=== PATIENT | female | born 1945 | race Caucasian/White ===

== ENCOUNTER → 2016-12-14 | Outpatient (CLI) | payer OTHER ==
[2016-12-14 13:27] LABS: BLOOD UREA NITROGEN 17 mg/dl (7-18); BUN/CREATININE RATIO 18.6 (10-20); CALCIUM 9.8 mg/dl (8.5-10.1); CARBON DIOXIDE 29 mmol/L (21-32); CHLORIDE 101 mmol/L (98-107); CREATININE 0.89 mg/dl (0.60-1.20); GLUCOSE 263 mg/dl (70-99); POTASSIUM 4.2 mmol/L (3.5-5.1); SODIUM 138 mmol/L (136-145)
[2016-12-14 13:35] LABS: ESTIMATED AVERAGE GLUCOSE 237 mg/dl; HA1C FLAG Normal (Normal)
[2016-12-14 13:55] LABS: RATIO 17.7 mcg/mg (0-30.0)
== END | disposition home or self-care (01) ==
LOC: C.LABMFLN 13:27
PROVIDERS: ATTEND Family Medicine
DX: E11.8 Type 2 diabetes mellitus with unspecified complications (principal); I10 Essential (primary) hypertension; Z00.00 Encounter for general adult medical examination without abnormal findings

== ENCOUNTER → 2018-07-13 | Outpatient (CLI) | payer OTHER ==
[2018-07-13 12:56] LABS: HEMOGLOBIN A1C 11.7 % (4.5-5.6)
[2018-07-13 13:29] LABS: ALT/SGPT 26 U/L (12-78); BLOOD UREA NITROGEN 15 mg/dl (7-18); CALCIUM 9.4 mg/dl (8.5-10.1); CARBON DIOXIDE 28 mmol/L (21-32); CREATININE 0.98 mg/dl (0.60-1.20); GLUCOSE 306 mg/dl (70-99); LDL CHOLESTEROL (DIRECT) 132 mg/dl; POTASSIUM 4.2 mmol/L (3.5-5.1); SODIUM 136 mmol/L (136-145)
== END | disposition home or self-care (01) ==
LOC: C.LABMFLN 10:22
PROVIDERS: ATTEND Family Medicine
DX: Z00.00 Encounter for general adult medical examination without abnormal findings (principal); E11.8 Type 2 diabetes mellitus with unspecified complications; I10 Essential (primary) hypertension; E78.00 Pure hypercholesterolemia, unspecified

== ENCOUNTER 2025-01-09 16:13 | Inpatient (IN) ==
[2025-01-09 17:04] LABS: Appearance Urine Clear (Clear); Bacteria Urine Automated 4+ (None Seen); Bilirubin Urine Negative (Negative); Blood Urine Negative (Negative); Cast Urine Automated 0-2 /lpf (0-2); Color Urine Yellow; Epithelial Cell Urine Auto 0-2 /hpf (0-2); Glucose Urine UA 3+ (Negative); Ketones Urine 1+ (Negative); Leukocyte Esterase Urine Negative (Negative); Nitrite Urine Positive (Negative); Protein Urine Negative (Negative); RBC Urine Automated 0-2 /hpf (0-2); Specific Gravity Urine 1.036 (1.000-1.030); Urobilinogen Urine Negative (Negative); WBC Urine Automated 0-5 /hpf (0-5); pH Urine 5.5 (4.5-7.5)
[2025-01-09 17:05] LABS: INR 1.3 (0.9-1.1); Partial Thromboplastin Time 27 Seconds (21-31); Prothrombin Time 13.5 Seconds (9.0-12.0)
[2025-01-09 17:06] LABS: Base Excess VBG 0.1 mEq/L; HCO3 VBG 24 mmol/L; Oxygen Saturation VBG 61.4 %; PCO2 VBG 34 mmHg (38-50); PO2 VBG 35 mmHg; pH VBG 7.45 (7.36-7.41)
[2025-01-09] MEDS: ACETAMINOPHEN 1,000 MG/100 ML VIAL IV STA (17:17)
[2025-01-09 17:18] LABS: Basophils # (auto) 0.01 K/uL (0.00-0.20); Basophils % (auto) 0.2 %; Hematocrit (blood only) 40.4 % (37.0-47.0); Hemoglobin 13.7 g/dl (12.0-16.0); Immature Granulocytes # (auto) 0.02 K/uL (0.01-0.20); Immature Granulocytes % (auto) 0.4 %; Lymphocytes # (auto) 0.59 K/uL (1.20-3.40); Lymphocytes % (auto) 12.9 %; Mean Corpuscular Hemoglobin 28.2 pg (25.0-34.0); Mean Corpuscular Hgb Conc 33.9 g/dL (32.0-36.0); Mean Corpuscular Volume 83.1 fL (80.0-100.0); Mean Platelet Volume 11.6 fL (9.4-12.4); Monocytes # (auto) 0.59 K/uL (0.11-0.59); Monocytes % (auto) 12.9 %; Neutrophils # (auto) 3.35 K/uL (1.40-6.50); Neutrophils % (auto) 73.6 %; Platelet Count 109 K/uL (130-400); RDW Coefficient of Variation 13.7 % (11.5-14.5); RDW Standard Deviation 41.5 fL (36.4-46.3); Red Blood Count 4.86 M/uL (4.20-5.40); White Blood Count 4.56 K/ul (4.8-10.8)
--- NOTE | 2025-01-09 17:31 | CT Scan Report ---
INDICATION: Altered mental status. COMPARISON: No relevant priors available TECHNIQUE: Axial CT images of the head were obtained without IV contrast. Coronal and sagittal reformations were reviewed. FINDINGS: Goodwin-white differentiation is relatively preserved. No mass, mass effect or midline shift. Mild chronic ischemic white matter changes. No evidence of acute large territorial infarction or acute intracranial hemorrhage. Ventricles appear normal in size. Basal cisterns are patent. No depressed calvarial fracture. Small amount of fluid in the right maxillary sinus. IMPRESSION: 1. No acute intracranial process. 2. Small amount of fluid in the right maxillary sinus. Correlate for sinusitis. Electronically signed by Saul Martino 01-09-2025 5:31 PM
[2025-01-09] MEDS: cefTRIAXone SODIUM 2,000 MG/50 ML BAG IV STA (17:47)
[2025-01-09] MEDS: SODIUM CHLORIDE 0.9% 1,000 ML IV SCH (17:47)
[2025-01-09 17:51] LABS: Albumin Level 4.3 gm/dl (3.4-5.0); BUN Creatinine Ratio 15.7 (10-20); Bilirubin Direct 0.1 mg/dl (0-0.2); Bilirubin,Total 0.5 mg/dl (0.2-1.0); Calcium 9.7 mg/dl (8.6-10.3); Creatinine Clr Calc Pharmacy 48.9 ml/min; Potassium 4.3 mmol/L (3.5-5.1); Total Protein 7.7 gm/dl (6.0-8.3); Troponin I High Sensitivity 66.9 pg/ml (0-14)
--- NOTE | 2025-01-09 17:51 | History & Physical Report ---
Date of Service January 09, 2025 Assessment & Plan (1) Sepsis: Plan: presented with acute confusion,+UA w/ lactic 3.0 on admission and temp to 38.3C with leukopenia with tachycardia CT head negative for acute CVA. suspect sepsis 2nd to urinary source with increased urination/burning/frequency reported Admit to med w/ telemetry 2L NSS bolus have been ordered and will monitor on repeat. Repeat lactic not ordered, placed order for NOW EKG w/ sinus tachycardia w/ rates 110bpm, possible LAR. Septal infarct noted but no CP. Troponin 66.9, no repeat and ordered x 1 now Ceftriaxone IV continued. F/u urine/blood cx (procal 0.05) Lovenox SQ for DVT proph (2) Metabolic encephalopathy: Plan: suspected 2nd to above. monitor response to tx UTI, f/u urine cx. hold home gabapentin/Requip for now (3) UTI (urinary tract infection): Plan: UA appearing grossly infected. Provided Ceftriaxone IV in ER and will continue on such F/u urine/blood cx and de-escalate as able (4) Diabetes mellitus: Plan: Last A1c 8.6 last march, Prior on Jardiance but stopped 2nd to cost but was improved <10 compared to prior. Currently on glipizide/metformin at baseline Glu back on chemistries and elevated to 400s, 2L IVF as above, possible early HSS? No anion gap noted. BUN/Cr 16/1.02 A1c w/ AM labs, hold home meds BSG AC/HS SSI while inpatient (5) Benign essential hypertension: Plan: On lisinopril-HCTZ 20-12.5mg daily Lisinopril 20mg PO x 1 now for BP 152/89, HCTZ to resume in AM as avoiding for now w/ dehydration (6) HLD (hyperlipidemia): Plan: likely benefit from statin, will add lipids to AM labs Plan DVT proph: Lovenox SQ once daily, monitor platelets Dispo: admit to med/telemetry, IVF for sepsis 2nd to urinary source suspected. monitor repeat lactic/troponin, EKG w/ CP if occurs PT/OT consults to be placed (lives w/ son) History of Present Illness Chief Complaint: AMS Primary Care Provider: NO PCP 79yo female with PMHx significant for DM/HTN presented with acute mental status change/confusion. CT head negative for acute CVA. UA appears grossly infected, likely source Patient evaluated in C9, no family in room. Alert to person, believes in [facility], year 1943 and month November but is pleasant/cooperative. Patient does endorse having burning/increased urinary frequency however. No overt abdominal pain, nausea/vomiting, no CP/SOB reported. EKG noting sinus tachycardia but rates stable 90-100s at present. Reports lives with her son, who apparently was with her earlier. A friend took to eye exam, notable right eye is DILATED from that appointment. Discussed admission for tx UTI/further evaluation, check A1c in AM. On lisinopril/HCTZ but notes doesn't regularly check her BP at home. Therapy evals to be undertaken. FULL CODE. Allergies Allergy/AdvReac Type Severity Reaction Status Date / Time No Known Drug Allergies Allergy Verified 04/07/23 09:16 Home Medications Medication Instructions Recorded Confirmed Type blood-glucose meter (OneTouch #1 ea 01/28/22 04/07/23 Rx Ultra2 Meter) lancets 33 gauge (OneTouch Delica #100 ea 01/28/22 04/07/23 Rx Plus Lancet) blood sugar diagnostic (OneTouch #100 ea 07/19/23 Rx Ultra Test strips) glipizide 10 mg tablet, extended 10 mg PO BID #60 tabs 07/26/24 01/09/25 Rx release 24 hr metformin 1,000 mg tablet 1,000 mg PO BID #180 tabs 07/27/24 01/09/25 Rx gabapentin 300 mg capsule 300 mg PO UD 01/09/25 01/09/25 History lisinopril 20 1 tab PO UD 01/09/25 01/09/25 History mg-hydrochlorothiazide 12.5 mg tablet ropinirole 0.25 mg tablet 0.5 mg PO HS 01/09/25 01/09/25 History Past Med/Surg History Problem List (Updated 01/09/25 @ 20:04 by Toño Zee MD) Sepsis (Acute) Metabolic encephalopathy (Acute) UTI (urinary tract infection) (Acute) Positive colorectal cancer screening using Cologuard test Screening for colon cancer Diabetic retinopathy, nonproliferative (Acute) Benign essential hypertension Medical History Screening for thyroid disorder Cholelithiases Elevated LDL cholesterol level Polyp of colon Restless legs syndrome (RLS) Surgical History History of tonsillectomy and adenoidectomy [place] teeth extracted H/O tubal ligation Family History Mother Diabetes Father Myocardial infarction, Onset Age: 80 Sister Diabetes Depression Brother Diabetes, Onset Age: 43 65 Grandfather (Maternal) Diabetes Grandmother (Maternal) Diabetes Social History Smoking Status: Former smoker Hx Alcohol Use: No Hx Substance Use: No Preferred Language: Mongolian Communication Ability: Effective Hearing Ability: Normal Beliefs That Will Affect Care: Muslim and Spiritual marital status: Current Living Situation: Spouse current occupational status: employed current occupation: realeastate agent Feels Safe at Home: Yes caffeine: No during the past year weight has: remained stable Physical Activity Frequency: Does not Exercise Seatbelt Use: sometimes Sunscreen Use: No Review of Systems 2 Review of Systems: All systems reviewed & are unremarkable except as noted in HPI & below Physical Exam 2 Physical Exam: General: 79yo female sitting up in bed, getting XRAY, NAD HEENT: head atraumatic, normocephalic, mm slightly dry, trachea midline Resp: even/unlabored, slightly diminished in the bases but no wheezing/rales, on ROOM AIR CV: RRR, slightly tachy (improving since IVF), no significant m/r/g, no pitting edema GI: +BS, soft/slight distension, nontender no winkler MSK/Neuro: moves all extremities, no slurred speech/facial droop, able to follow commands as asked but mentation not at baseline Notable RIGHT EYE DILATED (recent eye visit, was dilated at that exam) Psych: alert to person, not year/time/month, cooperative with exam Results & Data Results & Data Vital Signs (Past 12 Hours) Vital Signs Temp Pulse Pulse Resp BP BP Pulse Ox 01/09/25 17:32 36.6 C 80 18 121/69 97 01/09/25 16:52 112 H 22 167/94 H 01/09/25 16:50 112 H 25 H 167/94 H 01/09/25 16:50 112 H 23 01/09/25 16:36 108 H 01/09/25 16:27 38.3 C H 110 H 18 167/94 H 93 O2 Del Method 01/09/25 17:32 Room Air 01/09/25 16:52 Room Air 01/09/25 16:50 Room Air 01/09/25 16:50 01/09/25 16:36 01/09/25 16:27 Room Air Laboratory Results 01/09/25 16:32 01/09/25 16:32 VBG pH 7.45, pCO2 34 Lactic 3.0 Ammonia 15 Troponin 66.9 Procal 0.05 Diagnostic Findings Chest X-Ray 01/09/25 16:41 INDICATION: Chest pain. TECHNIQUE: Frontal radiograph of the chest. COMPARISON: None. FINDINGS: Elevation of the right hemidiaphragm. Cardiomegaly. Mild pulmonary vascular congestion. No infiltrate, pleural effusion or pneumothorax. No acute osseous abnormality evident. IMPRESSION: Mild pulmonary vascular congestion. Electronically signed by Saul Martino 01-09-2025 6:[address] 01/09/25 16:42 INDICATION: Altered mental status. COMPARISON: No relevant priors available TECHNIQUE: Axial CT images of the head were obtained without IV contrast. Coronal and sagittal reformations were reviewed. FINDINGS: Goodwin-white differentiation is relatively preserved. No mass, mass effect or midline shift. Mild chronic ischemic white matter changes. No evidence of acute large territorial infarction or acute intracranial hemorrhage. Ventricles appear normal in size. Basal cisterns are patent. No depressed calvarial fracture. Small amount of fluid in the right maxillary sinus. IMPRESSION: 1. No acute intracranial process. 2. Small amount of fluid in the right maxillary sinus. Correlate for sinusitis. Electronically signed by Saul Martino 01-09-2025 5:31 PM Supervising Physician Co-Signing Physician Notes Patient seen and examined, chart reviewed, case discussed with Aminata Hamilton PA-C and I agree with the assessment and plan as above except as otherwise noted Labs and images reviewed Presented with acute confusion, elevated lactate, fever, leukopenia, tachycardia. Infected appearing UA. Suspect urosepsis. Rocephin given in the ER. Fluids given in the ER. Repeat lactic acid is pending. Agree with above. On bedside assessment patient is nondistressed and comfortable. No questions. No distress. PG Care Time/CCT Total # of Minutes Spent Total Time Spent with Patient: Total time spent is greater than 50% in coordination of care (as documented) at patient's floor/unit and/or counseling patient: Coding Level of Care Code 77943 INT INP/OBS CARE 3/75MIN Diagnoses Sepsis A41.9 Metabolic encephalopathy G93.41 UTI (urinary tract infection) N39.0 Diabetes mellitus E11.9 Benign essential hypertension I10 HLD (hyperlipidemia) E78.5
[2025-01-09 17:57] LABS: Adenovirus PCR Not Detected (NotDetected); Bordetella parapertussis PCR Not Detected (NotDetected); Bordetella pertussis PCR Not Detected (NotDetected); Chlamydia pneumoniae PCR Not Detected (NotDetected); Coronavirus 229E PCR Not Detected (NotDetected); Coronavirus CoV-2 (COVID19)PCR Not Detected (NotDetected); Coronavirus HKU1 PCR Not Detected (NotDetected); Coronavirus NL63 PCR Not Detected (NotDetected); Coronavirus OC43PCR Not Detected (NotDetected); Human Metapneumovirus PCR Not Detected (NotDetected); Influenza A PCR Not Detected (NotDetected); Influenza B PCR Not Detected (NotDetected); Mycoplasma pneumoniae PCR Not Detected (NotDetected); Parainfluenza Virus 1 PCR Not Detected (NotDetected); Parainfluenza Virus 2 PCR Not Detected (NotDetected); Parainfluenza Virus 3 PCR Not Detected (NotDetected); Parainfluenza Virus 4 PCR Not Detected (NotDetected); Respiratory Syncytial VirusPCR Not Detected (NotDetected); Rhinovirus/Enterovirus PCR Not Detected (NotDetected)
--- NOTE | 2025-01-09 18:18 | XRay Report ---
INDICATION: Chest pain. TECHNIQUE: Frontal radiograph of the chest. COMPARISON: None. FINDINGS: Elevation of the right hemidiaphragm. Cardiomegaly. Mild pulmonary vascular congestion. No infiltrate, pleural effusion or pneumothorax. No acute osseous abnormality evident. IMPRESSION: Mild pulmonary vascular congestion. Electronically signed by Saul Martino 01-09-2025 6:16 PM
[2025-01-09 18:59] LABS: Troponin I High Sensitivity 59.2 pg/ml (0-14)
[2025-01-09 19:05] LABS: Thyroid Stimulating Hormone 1.471 uIu/ml (0.300-4.500)
--- NOTE | 2025-01-09 20:04 | Emergency Department Note ---
History of Present Illness General Chief complaint: Confusion Time Seen by Provider: 01/09/25 16:41 Limitations: altered mental status History of Present Illness Provider complaint: Altered mental status Onset (ago): day(s) 1 79-year-old female presents emergency department for altered mental status. Reportedly the patient was acting very confused today at her appointments. No reported falls or traumas. No fevers. Home Medications Medication Instructions Recorded Confirmed Type blood-glucose meter (OneTouch #1 ea 01/28/22 04/07/23 Rx Ultra2 Meter) lancets 33 gauge (OneTouch Delica #100 ea 01/28/22 04/07/23 Rx Plus Lancet) blood sugar diagnostic (OneTouch #100 ea 07/19/23 Rx Ultra Test strips) glipizide 10 mg tablet, extended 10 mg PO BID #60 tabs 07/26/24 01/09/25 Rx release 24 hr metformin 1,000 mg tablet 1,000 mg PO BID #180 tabs 07/27/24 01/09/25 Rx gabapentin 300 mg capsule 300 mg PO UD 01/09/25 01/09/25 History lisinopril 20 1 tab PO UD 01/09/25 01/09/25 History mg-hydrochlorothiazide 12.5 mg tablet ropinirole 0.25 mg tablet 0.5 mg PO HS 01/09/25 01/09/25 History Allergies Allergy/AdvReac Type Severity Reaction Status Date / Time No Known Drug Allergies Allergy Verified 04/07/23 09:16 Past Med/Surg History Problem List (Updated 01/09/25 @ 20:04 by Toño Zee MD) Sepsis (Acute) Metabolic encephalopathy (Acute) UTI (urinary tract infection) (Acute) Positive colorectal cancer screening using Cologuard test Screening for colon cancer Diabetic retinopathy, nonproliferative (Acute) Benign essential hypertension Medical History (Updated 01/09/25 @ 20:04 by Toño Zee MD) HLD (hyperlipidemia) Diabetes mellitus Screening for thyroid disorder Cholelithiases Elevated LDL cholesterol level Polyp of colon Restless legs syndrome (RLS) Surgical History History of tonsillectomy and adenoidectomy [facility] teeth extracted H/O tubal ligation Family History Mother Diabetes Father Myocardial infarction, Onset Age: 80 Sister Diabetes Depression Brother Diabetes, Onset Age: 43 65 Grandfather (Maternal) Diabetes Grandmother (Maternal) Diabetes Social History Smoking Status: Former smoker Hx Alcohol Use: No Hx Substance Use: No Preferred Language: Chilean Communication Ability: Effective Hearing Ability: Normal Beliefs That Will Affect Care: Latter Day and Spiritual marital status: Current Living Situation: Spouse current occupational status: employed current occupation: realeastate agent Feels Safe at Home: Yes caffeine: No during the past year weight has: remained stable Physical Activity Frequency: Does not Exercise Seatbelt Use: sometimes Sunscreen Use: No Physical Exam Vital Signs Vital Signs - 24 hr 01/09/25 16:27 01/09/25 16:36 01/09/25 16:50 Temperature 38.3 C H Temperature Source Oral Pulse Rate 110 H 108 H 112 H Pulse Rate [Right Finger] Pulse Rhythm Regular Pulse Rhythm [Right Finger] Pulse Strength [Right Finger] Respiratory Rate 18 23 Respiratory Effort / Characteristics Respiratory Depth Respiratory Pattern Blood Pressure 167/94 H Blood Pressure [Right Arm] Blood Pressure Mean 118 Blood Pressure Mean [Right Arm] Blood Pressure Position [Right Arm] Pulse Oximetry 93 Oxygen Delivery Method Room Air Sepsis Recent Fever Within 48 Hours Yes Sepsis New/Unexplained Change in Mental Status Yes Sepsis Action Taken by Nursing No Action Required 01/09/25 16:50 01/09/25 16:52 01/09/25 17:32 Temperature 36.6 C Temperature Source Oral Pulse Rate 80 Pulse Rate [Right Finger] 112 H 112 H Pulse Rhythm Pulse Rhythm [Right Finger] Regular Regular Pulse Strength [Right Finger] Normal Normal Respiratory Rate 25 H 22 18 Respiratory Effort / Characteristics Non-Labored Non-Labored Respiratory Depth Normal Normal Respiratory Pattern Regular Regular Blood Pressure 121/69 Blood Pressure [Right Arm] 167/94 H 167/94 H Blood Pressure Mean Blood Pressure Mean [Right Arm] 118 118 Blood Pressure Position [Right Arm] Lying Lying Pulse Oximetry 97 Oxygen Delivery Method Room Air Room Air Room Air Sepsis Recent Fever Within 48 Hours Sepsis New/Unexplained Change in Mental Status Sepsis Action Taken by Nursing 01/09/25 18:09 Temperature Temperature Source Pulse Rate Pulse Rate [Right Finger] 99 H Pulse Rhythm Pulse Rhythm [Right Finger] Regular Pulse Strength [Right Finger] Normal Respiratory Rate Respiratory Effort / Characteristics Respiratory Depth Respiratory Pattern Blood Pressure Blood Pressure [Right Arm] 152/89 H Blood Pressure Mean Blood Pressure Mean [Right Arm] 110 Blood Pressure Position [Right Arm] Lying Pulse Oximetry 95 Oxygen Delivery Method Room Air Sepsis Recent Fever Within 48 Hours Sepsis New/Unexplained Change in Mental Status Sepsis Action Taken by Nursing Physical Exam HENT: Exam performed. - Head: Normocephalic and atraumatic. EYES: Conjunctivae and EOM are normal. Right eye exhibits no discharge. Left eye exhibits no discharge. No scleral icterus. NECK: Normal range of motion. Neck supple. No JVD present. CV: Tachycardic rate, regular rhythm, normal heart sounds and intact distal pulses. There is no peripheral edema. Palpable radial pulses bue. PULM/CHEST: Effort normal and breath sounds normal. No respiratory distress. No stridor. no wheezes. no rales. ABD: The abdomen is soft. There is no tenderness. NEURO: Motor and sensation grossly intact. Patient is alert but not oriented to time. Oriented to person and place. SKIN: Skin is warm and dry. He is not diaphoretic. Course Course 1641: The patient was evaluated in room C9. A complete history and physical exam was performed Cardiac monitoring: An order was placed for continuous cardiac monitoring. The monitor shows a rate of 110 with sinus tachycardia rhythm interpreted by ut Sepsis protocols initiated. 1800: Vital signs stable. Labs show white blood cell count of 4.56 lactic acid of 3 CT of the head is unremarkable. Urinalysis seems to be the source of the patient's infection. IV fluid 2 L normal saline ordered for the patient which would meet the 30 cc/kg normal saline fluid resuscitation. Rocephin 2 g ordered for the patient [facility]. Administered Medications Discontinued Medications Acetaminophen (Ofirmev) 1,000 mg in 100 mls @ 400 mls/hr IV NOW STA Stop: 01/09/25 16:55 Last Infusion: 01/09/25 17:48 Dose: Infused Documented By: Admin: 01/09/25 17:17 Dose: 400 mls/hr Documented By: BAYRON Ceftriaxone Sodium (Rocephin) 2,000 mg in 50 mls @ 100 mls/hr IV NOW STA Stop: 01/09/25 17:57 Last Infusion: 02/18/25 18:50 Dose: Infused Documented By: Admin: 01/09/25 17:47 Dose: 100 mls/hr Documented By: BAYRON Sodium Chloride (Nss) 1,000 mls @ 999 mls/hr IV .Q1H1M [facility] Stop: 01/09/25 19:45 Last Admin: 01/09/25 18:31 Dose: 999 mls/hr Documented By: Infusion: 01/09/25 18:31 Dose: Infused Documented By: Admin: 01/09/25 17:47 Dose: 999 mls/hr Documented By: BAYRON Critical Care Time Critical Care Time: Yes Total Critical Care Time: 47 I have personally spent greater than 47 minutes of critical care time in the direct management of this patient. This includes bedside care, interpretation of diagnostic studies, and testing, discussion with consultants, patient, and family members, and other required patient management activities. This 47 minutes is in excess of all separately billable procedures. Medical Decision Making Laboratory Data Attestation: I reviewed the patient's lab results. 01/09/25 16:32 01/09/25 16:32 Lab Results 01/09/25 01/09/25 01/09/25 Range/Units 16:32 16:49 16:53 WBC 4.56 L (4.8-10.8) K/ul RBC 4.86 (4.20-5.40) M/uL Hgb 13.7 (12.0-16.0) g/dl Hct 40.4 (37.0-47.0) % MCV 83.1 (80.0-100.0) fL MCH 28.2 (25.0-34.0) pg MCHC 33.9 (32.0-36.0) g/dL RDW Std Deviation 41.5 (36.4-46.3) fL RDW Coeff of Angelica 13.7 (11.5-14.5) % Plt Count 109 L (130-400) K/uL MPV 11.6 (9.4-12.4) fL Immature Gran % (Auto) 0.4 % Neut % (Auto) 73.6 % Lymph % (Auto) 12.9 % [place] % (Auto) 12.9 % Eos % (Auto) 0.0 % Baso % (Auto) 0.2 % Neut # (Auto) 3.35 (1.40-6.50) K/uL Lymph # (Auto) 0.59 L (1.20-3.40) K/uL [place] # (Auto) 0.59 (0.11-0.59) K/uL Eos # (Auto) 0.00 (0.00-0.50) K/uL Baso # (Auto) 0.01 (0.00-0.20) K/uL Immature Gran # (Auto) 0.02 (0.01-0.20) K/uL PT 13.5 H (9.0-12.0) Seconds INR 1.3 H (0.9-1.1) APTT 27 (21-31) Seconds PTT Ratio 1.0 VBG pH 7.45 H (7.36-7.41) VBG pCO2 34 L (38-50) mmHg VBG pO2 35 mmHg VBG HCO3 24 mmol/L VBG O2 Saturation 61.4 % VBG Base Excess 0.1 mEq/L Sodium 131 L (136-145) mmol/L Potassium 4.3 (3.5-5.1) mmol/L Chloride 97 L (98-107) mmol/L Carbon Dioxide 24 (21-32) mmol/L Anion Gap 10 (3-11) BUN 16 (6-23) mg/dl Creatinine 1.02 (0.6-1.2) mg/dl Est Cr Clr Drug Dosing 48.9 ml/min eGFR 56.31 BUN/Creatinine Ratio 15.7 (10-20) Glucose 421 H* (70-99(Fasting)) mg/dl Lactate 3.0 H* (0.4-2.0) mmol/L Calcium 9.7 (8.6-10.3) mg/dl Magnesium 2.0 (1.7-2.4) mg/dl Total Bilirubin 0.5 (0.2-1.0) mg/dl Direct Bilirubin 0.1 (0-0.2) mg/dl AST 35 (13-39) U/L ALT 13 (7-52) U/L Alkaline Phosphatase 101 (34-104) U/L Ammonia (18-72) umol/L Troponin I High Sens 66.9 H* (0-14) pg/ml Total Protein 7.7 (6.0-8.3) gm/dl Albumin 4.3 (3.4-5.0) gm/dl Vitamin B12 (180-914) pg/ml Procalcitonin 0.05 (0-0.5) ng/ml TSH (0.300-4.500) uIu/ml Urine Color Yellow Urine Appearance Clear (Clear) Urine pH 5.5 (4.5-7.5) Ur Specific [place] 1.036 H (1.000-1.030) Urine Protein Negative (Negative) Urine Glucose (UA) 3+ H (Negative) Urine Ketones 1+ H (Negative) Urine Blood Negative (Negative) Urine Nitrite Positive A (Negative) Urine Bilirubin Negative (Negative) Urine Urobilinogen Negative (Negative) Ur Leukocyte Esterase Negative (Negative) Urine WBC (Auto) 0-5 (0-5) /hpf Urine RBC (Auto) 0-2 (0-2) /hpf U Hyaline Cast (Auto) 0-2 (0-2) /lpf U Epithel Cells (Auto) 0-2 (0-2) /hpf Urine Bacteria (Auto) 4+ H (None Seen) Adenovirus (PCR) (NotDetected) B. pertussis DNA (PCR) (NotDetected) B.parapertussis DNA PCR (NotDetected) C. pneumoniae DNA (PCR) (NotDetected) Coronavirus OC43 (PCR) (NotDetected) Coronavirus HKU1 (PCR) (NotDetected) Coronavirus 229E (PCR) (NotDetected) SARS-CoV-2 (PCR) (NotDetected) Coronavirus NL63 (PCR) (NotDetected) Human Metapneumovir PCR (NotDetected) Influenza Type A (PCR) (NotDetected) Influenza Type B (PCR) (NotDetected) M. pneumoniae (PCR) (NotDetected) Parainfluenza 1 (PCR) (NotDetected) Parainfluenza 2 (PCR) (NotDetected) Parainfluenza 3 (PCR) (NotDetected) Parainfluenza 4 (PCR) (NotDetected) RSV (PCR) (NotDetected) Entero/Rhino (PCR) (NotDetected) 0201/09/25 01/09/25 Range/Units 16:54 17:24 18:28 WBC (4.8-10.8) K/ul RBC (4.20-5.40) M/uL Hgb (12.0-16.0) g/dl Hct (37.0-47.0) % MCV (80.0-100.0) fL MCH (25.0-34.0) pg MCHC (32.0-36.0) g/dL RDW Std Deviation (36.4-46.3) fL RDW Coeff of Angelica (11.5-14.5) % Plt Count (130-400) K/uL MPV (9.4-12.4) fL Immature Gran % (Auto) % Neut % (Auto) % Lymph % (Auto) % [place] % (Auto) % Eos % (Auto) % Baso % (Auto) % Neut # (Auto) (1.40-6.50) K/uL Lymph # (Auto) (1.20-3.40) K/uL [place] # (Auto) (0.11-0.59) K/uL Eos # (Auto) (0.00-0.50) K/uL Baso # (Auto) (0.00-0.20) K/uL Immature Gran # (Auto) (0.01-0.20) K/uL PT (9.0-12.0) Seconds INR (0.9-1.1) APTT (21-31) Seconds PTT Ratio VBG pH (7.36-7.41) VBG pCO2 (38-50) mmHg VBG pO2 mmHg VBG HCO3 mmol/L VBG O2 Saturation % VBG Base Excess mEq/L Sodium (136-145) mmol/L Potassium (3.5-5.1) mmol/L Chloride (98-107) mmol/L Carbon Dioxide (21-32) mmol/L Anion Gap (3-11) BUN (6-23) mg/dl Creatinine (0.6-1.2) mg/dl Est Cr Clr Drug Dosing ml/min eGFR BUN/Creatinine Ratio (10-20) Glucose (70-99(Fasting)) mg/dl Lactate 2.1 H* (0.4-2.0) mmol/L Calcium (8.6-10.3) mg/dl Magnesium (1.7-2.4) mg/dl Total Bilirubin (0.2-1.0) mg/dl Direct Bilirubin (0-0.2) mg/dl AST (13-39) U/L ALT (7-52) U/L Alkaline Phosphatase (34-104) U/L Ammonia 15.0 L (18-72) umol/L Troponin I High Sens 59.2 H* (0-14) pg/ml Total Protein (6.0-8.3) gm/dl Albumin (3.4-5.0) gm/dl Vitamin B12 > 1500 H (180-914) pg/ml Procalcitonin (0-0.5) ng/ml TSH 1.471 (0.300-4.500) uIu/ml Urine Color Urine Appearance (Clear) Urine pH (4.5-7.5) Ur Specific [place] (1.000-1.030) Urine Protein (Negative) Urine Glucose (UA) (Negative) Urine Ketones (Negative) Urine Blood (Negative) Urine Nitrite (Negative) Urine Bilirubin (Negative) Urine Urobilinogen (Negative) Ur Leukocyte Esterase (Negative) Urine WBC (Auto) (0-5) /hpf Urine RBC (Auto) (0-2) /hpf U Hyaline Cast (Auto) (0-2) /lpf U Epithel Cells (Auto) (0-2) /hpf Urine Bacteria (Auto) (None Seen) Adenovirus (PCR) Not Detected (NotDetected) B. pertussis DNA (PCR) Not Detected (NotDetected) B.parapertussis DNA PCR Not Detected (NotDetected) C. pneumoniae DNA (PCR) Not Detected (NotDetected) Coronavirus OC43 (PCR) Not Detected (NotDetected) Coronavirus HKU1 (PCR) Not Detected (NotDetected) Coronavirus 229E (PCR) Not Detected (NotDetected) SARS-CoV-2 (PCR) Not Detected (NotDetected) Coronavirus NL63 (PCR) Not Detected (NotDetected) Human Metapneumovir PCR Not Detected (NotDetected) Influenza Type A (PCR) Not Detected (NotDetected) Influenza Type B (PCR) Not Detected (NotDetected) M. pneumoniae (PCR) Not Detected (NotDetected) Parainfluenza 1 (PCR) Not Detected (NotDetected) Parainfluenza 2 (PCR) Not Detected (NotDetected) Parainfluenza 3 (PCR) Not Detected (NotDetected) Parainfluenza 4 (PCR) Not Detected (NotDetected) RSV (PCR) Not Detected (NotDetected) Entero/Rhino (PCR) Not Detected (NotDetected) Imaging Data Attestation: I personally reviewed and interpreted this imaging study as follows: My Impression: Chest x-ray negative. Airway clear. No pneumothorax. No consolidation. No cardiomegaly or cephalization.. No free air under the diaphragm. No fractures of the skeletal structures. Radiologist's Impression: Chest X-Ray 01/09/25 16:41 INDICATION: Chest pain. TECHNIQUE: Frontal radiograph of the chest. COMPARISON: None. FINDINGS: Elevation of the right hemidiaphragm. Cardiomegaly. Mild pulmonary vascular congestion. No infiltrate, pleural effusion or pneumothorax. No acute osseous abnormality evident. IMPRESSION: Mild pulmonary vascular congestion. Electronically signed by Saul Martino 01-09-2025 6:[address] 01/09/25 16:42 INDICATION: Altered mental status. COMPARISON: No relevant priors available TECHNIQUE: Axial CT images of the head were obtained without IV contrast. Coronal and sagittal reformations were reviewed. FINDINGS: Goodwin-white differentiation is relatively preserved. No mass, mass effect or midline shift. Mild chronic ischemic white matter changes. No evidence of acute large territorial infarction or acute intracranial hemorrhage. Ventricles appear normal in size. Basal cisterns are patent. No depressed calvarial fracture. Small amount of fluid in the right maxillary sinus. IMPRESSION: 1. No acute intracranial process. 2. Small amount of fluid in the right maxillary sinus. Correlate for sinusitis. Electronically signed by Saul Martino 01-09-2025 5:31 PM ECG Data Attestation: I personally reviewed and interpreted this ECG as follows: Rate (beats per minute): 110 Rhythm: + sinus tachycardia ECG Intervals/blocks: + Normal NE and + Normal QT-c ECG ST segments: + Normal ST segments Additional Comments: QRS 68 MDM Narrative 1641: The patient was evaluated in room C9. A complete history and physical exam was performed Cardiac monitoring: An order was placed for continuous cardiac monitoring. The monitor shows a rate of 110 with sinus tachycardia rhythm interpreted by ut Sepsis protocols initiated. 1800: Vital signs stable. Labs show white blood cell count of 4.56 lactic acid of 3 CT of the head is unremarkable. Urinalysis seems to be the source of the patient's infection. IV fluid 2 L normal saline ordered for the patient which would meet the 30 cc/kg normal saline fluid resuscitation. Rocephin 2 g ordered for the patient patient will be admitted to the [facility] hospitalist team. Impression & Plan UTI (urinary tract infection), Sepsis, Metabolic encephalopathy Discharge Plan Visit Data Chief Complaint: Confusion ED Provider: Toño Zee Discharge Problem: UTI (urinary tract infection), Sepsis, Metabolic encephalopathy Patient Disposition: Admitted As Inpatient Discharge Instructions Interventions: ED Discharge Assessment Last Done: 01/09/25 17:32 Forms Stand Alone Forms: [facility] Prescriptions Prescriptions: No Action (DME) OneTouch Ultra Test Strip See Rx Instructions .ROUTE .MEDSUPPLY Qty: 100 5RF Rx Instructions: As directed Dx E11.9 Test BID glipizide 10 mg tablet extended release 24hr 10 mg PO BID Qty: 60 0RF Rx Instructions: with meals metformin 1,000 mg tablet 1,000 mg PO BID Qty: 180 1RF (DME) blood-glucose meter [OneTouch Ultra2 Meter] Misc See Rx Instructions .Route Qty: 1 0RF Rx Instructions: As directed Dx E11.9 Check FSBS BID (DME) lancets [OneTouch Delica Plus Lancet] 33 gauge misc See Rx Instructions .Route Qty: 100 5RF Rx Instructions: As directed Dx E11.9 Test BID lisinopril-hydrochlorothiazide 20-12.5 mg tablet 1 tab PO UD Rx Instructions: 12.5 mg po daily. no fill history available ropinirole 0.25 mg tablet 0.5 mg PO HS Rx Instructions: 2 po at hs for restless legs; gabapentin 300 mg capsule 300 mg PO UD Rx Instructions: 300 mg po bid. filled 12/04 90 day supply #270 Referrals Referrals: PCP,NO [Primary Care Provider] -
[2025-01-09] MEDS ORDERED: ONDANSETRON INJ 2 MG/ML 2 ML VIAL IV PRN (21:07)
[2025-01-09] MEDS ORDERED: CARBOHYDRATES FOR HYPOGLYCEMIA PO PRN (21:07)
[2025-01-09] MEDS ORDERED: GLUCOSE 40% GEL 15 GM TUBE PO PRN (21:07)
[2025-01-09] MEDS ORDERED: GLUCOSE 10 TAB/TUBE PO PRN (21:07)
[2025-01-09] MEDS ORDERED: GLUCAGON FOR INJ 1 MG VIAL SQ PRN (21:07)
[2025-01-09] MEDS ORDERED: DEXTROSE 50% 50 ML SYRINGE IV PRN (21:07)
[2025-01-09] MEDS: ENOXAPARIN INJ 40 MG/0.4 ML SYR SQ SCH (21:54)
[2025-01-09] MEDS: INSULIN ASPART PER UNIT CHARGE SC SCH (21:54)
[2025-01-09] MEDS: lisinopril 20 MG TAB PO STA (21:54)
--- OUTSIDE RECORDS SUMMARY | 2025-01-10 02:15 | External Medical Summary ---
Author Name Unknown Address Unknown Organization [id number] [address] [place] [id number] Laboratory Report Ordering Provider Test Date Status SHAGGY MCGUIRE 01/09/2025 15:17:20 Final Observation Date Value Abnormality Reference (Units ) Status Glucose Point of Care 01/09/2025 15:17:20 452 Above high normal 70-120 (mg/dL) Final Performing Location [facility] [address] [place] [id number]
--- OUTSIDE RECORDS SUMMARY | 2025-01-10 02:15 | External Medical Summary | Summary of Care ---
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 Active Lisinopril-hydroC HLOROthiazide 20-25 MG Oral Tablet Take 1 Tablet by mouth in the morning. 2 Active NATURAL SUPPLEMENT Take 6 Tablets by mouth in the morning. "Three"-takes 6 pills throughout the day with natural vitamins-B12, D, and other vitamins.. Active glipiZIDE ER 10 MG Oral Tablet Extended Release 24 Hour (Glucotrol XL) take one tablet by mouth twice a day with meals 180 Tablet 3 11/23/2024 5:05 PM EST 4 Active metFORMIN HCl 1000 MG Oral Tablet (Glucophage) take one tablet by mouth twice a day 180 Tablet 3 11/23/2024 5:05 PM EST 4 Active rOPINIRole HCl 0.25 MG Oral Tablet (Requip) Take 2 tablets by mouth at bedtime for restless legs 200 Tablet 3 09/11/2024 10:04 AM EDT 4 Active Gabapentin 300 MG Oral Capsule (Neurontin)Indica tions:Type 2 diabetes mellitus with diabetic polyneuropathy, without long-term current use of insulin ([facility]),Lumbar degenerative disc disease,Spinal stenosis of lumbar region with neurogenic claudication Take 1 Capsule by mouth in the morning and 1 Capsule at noon and 1 Capsule before bedtime. 280 Capsule 3 09/11/2024 3:30 PM EDT 4 Active Empagliflozin 25 MG Oral Tablet (Jardiance)Indica tions:Type 2 diabetes mellitus with diabetic peripheral angiopathy without gangrene, without long-term current use of insulin ([facility]) Take 1 Tablet by mouth in the morning. 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 with type 2 diabetes mellitus (HCC) 1.25 mg IZ PRN 02/29/2024 02/28/2025 A ctive ROPivacaine (Naropin) inj 1.5 mgIndications: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 eye with active choroidal neovascularization (HCC),Intermediate stage nonexudative age-related macular degeneration of right eye,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 associated with type 2 diabetes mellitus (HCC) 1.5 mg IJ PRN 02/29/2024 02/28/2025 A ctive documented as of this encounter (statuses as of 2024) Active Problems Problem Noted Date Diagnosed Date Macular degeneration of both eyes 10/09/2024 Type 2 diabetes mellitus wit h moderate nonproliferative retinopathy of both eyes, without long-term current use of insulin 10/09/2024 Lumbar degenerative disc disease 07/11/2024 Spinal stenosis of lumbar re gion with neurogenic claudication 07/11/2024 Gait disturbance 04/10/2024 Moderate nonproliferative di abetic retinopathy of left eye with macular edema associated with type 2 diabetes mellitus 02/28/2024 Intermediate stage nonexudat david age-related macular degeneration of both eyes 02/28/2024 Class 1 obesity due to exces s calories with serious comorbidity and body mass index (BMI) of 31.0 to 31.9 in adult 02/11/2024 Type 2 diabetes mellitus wit h diabetic peripheral angiopathy without gangrene 01/06/2024 Hypertension goal BP (blood pressure) < 140/90 0 01/06/2024 Dyslipidemia, goal LDL below 70 10/01/2023 Type 2 diabetes mellitus wit h hyperglycemia, without long-term current use of insulin 10/01/2023 Type 2 diabetes mellitus wit h diabetic polyneuropathy, without long-term current use of insulin 10/01/2023 Type 2 diabetes mellitus wit h hemoglobin A1c goal of less than 7.0% 10/01/2023 Onychomycosis 10/01/2023 Postmenopausal status, age-related 10/01/2023 documented as of this encounter (statuses as of 2024) Social History Tobacco Use Types Packs/Day Years Used Date Smoking Tobacco: Former Cigarettes 1 17 1 12/21/1975 - 10/21/1993 Passive Smoke Exposure: Current Smokeless Tobacco: Never Alcohol Use Standard Drinks/Week Comments Yes 0 (1 standard drink = 0.6 oz pure alcohol) rare - glass of wine once or twice a month PHQ-2 Answer Date Recorded PHQ Adult Total Score 0 06/29/2024 Hunger Vital Sign Answer Date Recorded Within the past 12 months, y ou worried that your food would run out before you got the money to buy more. Never true 07/11/20 24 Within the past 12 months, t he food you bought just didn't last and you didn't have money to get more. Never true 07/11/2024 Childcare Answer Date Recorded Do you feel overwhelmed with taking care of a child, family member or friend? No 07/11/2024 Does your family need help f inding childcare? (Household - for ages 0-17 years) Not on file 07/11/2024 Clothing Answer Date Recorded Have you been unable to get clothing when it was really needed? No 07/11/2024 Is your family able to get c lothes or diapers when needed? (Household - for ages 0-17 years) Not on file 07/11/2024 Personal Safety Answer Date Recorded Do you feel unsafe or have concerns for your saf ety? No 07/11/2024 Do you have concerns for you r family's safety? (Household - for ages 0-17 years) Not on file 07/11/2024 Utilities Answer Date Recorded Do you have trouble paying y our heating, water, or electric bill? No 07/11/2024 Is your family able to pay t he heat, water, or electric bill? (Household - for ages 0-17 years) Not on file 07/11/2024 Does your family have access to good internet? (Household - for ages 0-17 years) Not on file 07/11/2024 Employment Status Answer Date Recorded Are you unemployed or without regular income? No 07/11/2024 Does the household have a re gular source of income? (Household - for ages 0-17 years) Not on file 07/11/2024 Social Connections Answer Date Recorded How often do you feel lonely or isolated from th ose around you? Never 07/11/2024 Financial Resource Strain Answer Date R ecorded Do you have any trouble payi ng for your medications, or do you think you might in the future? No 07/11/2024 Does your family have troubl e paying for medicine? (Household - for ages 0-17 years) Not on file 07/11/2024 Transportation Needs Answer Date Record ed Do you have trouble getting a ride to medical visits or work? (Adult - for ages 18 years and over) Not on file 07/11/2024 Does your family have a hard time getting a ride to doctors visits? (Household - for ages 0-17 years) Not on file 07/11/2024 Has lack of transportation k ept you from medical appointments, meetings, work, or from getting things needed for daily living? Check all that apply. No 07/11/2024 Do you (or your family) have trouble finding or paying for a ride (transportation)? (Household - for ages 0-17 years) Not on file 07/11/2024 Housing Stability Answer Date Recorded Do you currently live in a s helter or have no steady place to sleep at night? No 07/11/2024 Do you think you are at risk of becoming homeless? (Adult - for ages 18 years and over) Not on file 07/11/2024 Does your family worry about paying for your home or becoming homeless? (Household - for ages 0-17 years) Not on file 0 07/11/2024 Are you homeless or worried that you might be in the future? No 07/11/2024 Are you (or your family) john paul eless or worried that you might be in the future? (Household - for ages 0-17 years) Not on file Food Insecurity Answer Date Recorded Do you need food for this week? No 07/11/2024 Are you able to get enough f ood for your family? (Household - for ages 0-17 years) Not on file 07/11/2024 Does your family need food t his week? (Household - for ages 0-17 years) Not on file 07/11/2024 Do you always have enough fo od for your family? (Household - for ages 0-17 years) Not on file 07/11/2024 Comments No Sex and Gender Information Value Date Recorded Sex Assigned at Female 10/01/2023 12:48 PM EST Legal Sex Female 5:57 AM EST Gender Identity Female 10/01/2023 12:48 PM EST Sexual Orientation Straight 10/01/2023 12 :48 PM EST documented as of this encounter Progress Notes * Kennedy Barger DO - 2024 3:15 PM EST [facility] [place] Nursing Notes: Anupama Berger TECH 11/28/24 1545 Signed Andreia Pulido is a 79 year old year old female who presents for AMD/Mod NPDR OU. Last Office Visit: 08/22/2024 (in office), Visit date not found (telemedicine) Patient currently states no change in vision. Are you diabetic? Yes. Do you check your blood sugars daily? YES. Fasting BS this mornin mg/dl. Last Hemoglobin A1C: Lab Results Component Value Date/Time HGBA1C 7.7 (H) 07/11/2024 11:04 AM HGBA1C 9.3 (H) 03/30/2024 10:49 AM HGBA1C 10.1 (H) 01/03/2024 10:50 AM HGBA1C 8.1 (A) 09/15/2023 12:00 AM HGBA1C 9.2 (A) 06/02/2023 12:[address]? yes OCT image(s) of both eyes acquired and filed/scanned into chart. Anupama Berger, TECH 11/28/24 1602 Signed Andreia Pulido to receive first Avastin 2.75 mg Injection of the Right eye. Correct eye confirmed with patient and marked by Kennedy Baregr DO Avastin 2.75 mg lot # [id number] Exp. Date: 01/27/2025 Base Eye Exam Visual Acuity (Snellen - Linear) Right Left Dist sc 20/80 -2 CF 2' Dist ph sc 20/60 -1 Tonometry (Tonopen, 3:43 PM) Right Left Pressure 13 16 Pupils Shape React APD Right Round Minimal None Left Round Minimal None Visual Reid Not checked Extraocular Movement Right Left Full, Ortho Full, Ortho Neuro/Psych Oriented x3: Yes Mood/Affect: Normal Dilation Both eyes: 0.5% Proparacaine @ 3:42 PM Dilation #2 Both eyes: 1.0% Mydriacyl, 2.5% Phenylephrine @ 3:43 PM EXTERNAL: The ocular adnexae are unremarkable. SLE: Lids/Lashes: wnl OU Conjunctiva/Sclera: quiet OU Cornea: clear OU Anterior Chamber: deep and quiet OU Iris: normal OU; no NVI OU Lens: PCIOL OU Dilated fundus exam OD: vitreous: clear optic nerve: 0.3, no edema/pallor/NVD macula: drusen, foot roentgenologist vessels: wnl periphery: foot roentgenologist, no RT/RD Dilated fundus exam OS: vitreous: clear optic nerve: 0.3, no edema/pallor/NVD macula: drusen, disciform scar vessels: wnl periphery: foot roentgenologist, no RT/RD OCT Interpretation: OD: drusen, no srf, +irf--NEW/WORSE OS: drusen, ped w/ srf/irf--STABLE, prior worse, prior worse 90um prior improved A/P: 1. Age-Related Macular Degeneration OD: new wet 2024 -start Avastin 2024 OS: wet -Avastin 04/12/24, 02/29/2024 -19 weeks -VA poor w/ central disciform scar; hold further injections for now -An examination for this condition was completed which is unrelated to the procedure that was performed today -recommend AREDS2 MVI as directed and Amsler grid qday -monitor 2. Moderate Nonproliferative Diabetic Retinopathy OU -monitor -recommend HgbA1C <7, BP and lipid control. 3. Pseudophakia OU -stable -currently not legal to drive at nightime, pt. understands F/u 4-6 weeks, OCT OD Kennedy Barger DO CC: Dr. Sharma CC: PCP: Thomas Roche DO TIMEOUT PROCEDURE: correct patient identity-YES correct procedure and consent-YES verified side and site-YES correct patient position-YES all necessary equipment/prior studies present-YES reviewed special requirements of this patient-YES PROCEDURE: Intravitreal injection of Avastin 1.25mg OD INFORMED CONSENT: Patient is aware that this is an off-label use of Avastin and that Avastin is not FDA approved for this use. Risks, benefits and alternatives have been discussed with the patient. Risks include, but are not limited to: retinal tears, detachments, hemorrhage, glaucoma, infection, cataracts, need formore procedures and the potential risk of arterial thromboembolic events following use of intravitreal VEGF inhibitors defined as nonfatal stroke, nonfatal myocardial infarction or vascular . Patient is aware of these risks and consents to the procedure. DESCRIPTION OF PROCEDURE: The procedure site was confirmed. Topical proparacaine was applied to the surface of the eye after which subconjunctival anesthetic was administered. The area was prepped in the standard aseptic manner with 5% Betadine solution. An eyelid speculum was placed and 0.05 ml of a 25mg/ml solution of Avastin was injected 3.75 mm posterior to the limbus into the midvitreous cavity with a 30 gauge short needle. The Betadine was flushed from the eye, the eye speculum was removed and optic nerve perfusion was insured. The patient tolerated the procedure without difficulty and was given followup instructions and instructed to use ophthalmic ointment 3x/day as needed. Kennedy Barger DO, performed the procedure in its entirety. documented in this encounter Nursing Notes * Anupama Berger TECH - 2024 4:00 PM EST Andreia Pulido to receive first Avastin 2.75 mg Injection of the Right eye. Correct eye confirmed with patient and marked by Kennedy Barger DO Avastin 2.75 mg lot # [id number] Exp. Date: 01/27/2025 * Anupama Berger TECH - 2024 3:38 PM EST Andreia Pulido is a 79 year old year old female who presents for AMD/Mod NPDR OU. Last Office Visit: 08/22/2024 (in office), Visit date not found (telemedicine) Patient currently states no change in vision. Are you diabetic? Yes. Do you check your blood sugars daily? YES. Fasting BS this mornin mg/dl. Last Hemoglobin A1C: Lab Results Component Value Date/Time HGBA1C 7.7 (H) 07/11/2024 11:04 AM HGBA1C 9.3 (H) 03/30/2024 10:49 AM HGBA1C 10.1 (H) 01/03/2024 10:50 AM HGBA1C 8.1 (A) 09/15/2023 12:00 AM HGBA1C 9.2 (A) 06/02/2023 12:[address]? yes OCT image(s) of both eyes acquired and filed/scanned into chart. 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 choroidal neovascularization (HCC) Exudative age-related macular degeneration of right eye with active choroidal neovascularization (HCC) Ordered: 2024 Health Maintenance Due Date Last Done Comments COVID-19 Vaccine (#1) 1950 Hepatitis C Screening 1963 DTap/Tdap Vaccines (1 - Tdap) 1965 Pneumococcal Vaccine: 50+ Years (1 of 2 - PCV) 1965 Zoster Vaccines (1 of 2) 1964 DXA Scan 2011 Influenza Vaccine (FLU shot) (#1) 2024 Albumin/Creatinine Ratio 01/07/2025 024, 07/27/2023, 09/25/2022 HbA1c 01/11/2025 07/11/2024, 05/0 07/2024, 01/03/2024, Additional history exists Diabetic Eye Exam 02/24/2025 02/25/2024, , 02/25/2024, Additional history exists Diabetic Foot Exam 04/10/2025 04/10/2024 Adult Wellness Visit 06/29/2025 06/29/2024 Depression Screening 06/29/2025 06/29/2024 GFR 07/11/2025 07/11/2024, 05/0 07/2024, 01/03/2024, Additional history exists HPV (Gardasil) Vaccine Aged Out No lo nger eligible based on patient's age to complete this topic Hepatitis B Vaccine Aged Out No longe r eligible based on patient's age to complete this topic MENINGOCOCCAL (MENACTRA/MENVEO) Aged Out No longer eligible based on patient's age to complete this topic documented as of this encounter Medical Devices Implanted Type Area Shipping Helper Device Identifier Shelf Expiration Date Model / Serial / Lot Lens Intraoc 25.5 - [id number] - [id number] Implanted:Qty: 1 on 01/30/2021 by Roberto Osorio MD at OR [facility] Left: Eye BAUSCH & LOMB 07/22/2025 [id number] / [id number] / [id number] Lens Intraoc 26.0 - [id number] - [id number] Implanted:Qty: 1 on 02/11/2021 by Roberto Osorio MD at OR [facility] Right: Eye BAUSCH & LOMB 06/21/2025 [id number] / [id number] / documented as of this encounter Visit Diagnoses Diagnosis 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 eye with active choroidal neovascularization (HCC)- Primary Exudative age-related macular degeneration of right eye with active choroidal neovascularization (HCC) documented in this encounter Administered Medications Active Administered Medications - up to 3 most recent administrations Medication Order MAR Action Action Date Dose Rate Site bevaCIZumab (Avastin) inj 1.25 mg 1.25 mg, Intravitreal, PRN Other, Starting on Wed02/29/24 at 1034, Until Wed02/28/25 at 1033, For 365 daysIndications: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 eye with active choroidal neovascularization (HCC),Intermediate stage nonexudative age-related macular degeneration of right eye,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 associated with type 2 diabetes mellitus (HCC) Given 2024 4:02 PM EST 1.25 mg Eye Right Given 04/12/2024 2:14 PM EDT 1.25 mg Ey e Left Given 02/29/2024 11:14 AM EDT 1.25 mg E ye Left ROPivacaine (Naropin) inj 1.5 mg 1.5 mg, Injection, PRN Other, Starting on Wed02/29/24 at 1034, Until Wed02/28/25 at 1033, For 365 daysIndications: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 eye with active choroidal neovascularization (HCC),Intermediate stage nonexudative age-related macular degeneration of right eye,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
--- OUTSIDE RECORDS SUMMARY | 2025-01-10 02:15 | External Medical Summary | Summary of Care ---
Author Name Unknown Organization [facility] Address [address] [place] [address] Phone [phone] Care Team Providers Care Player Services Representative Name Role Phone Maria ElenaThomas Primary Care Provider + [phone] Encounter Details Date Type Department Care Team (Late st Contact Info) Description 12/11/2024 Population Health External Data Unspecified Department Allergies No known active allergiesdocumented as of this encounter (statuses as of 12/11/2024) Medications OneTouch Ultra In Vitro Strip (Glucose [...] bedtime for restless legs 200 Tablet 3 12/04/2024 5:56 PM EST 4 Active Gabapentin 300 MG Oral Capsule (Neurontin)Indica tions:Type 2 diabetes mellitus with diabetic polyneuropathy, without long-term current use of insulin (HCC),Lumbar degenerative disc disease,Spinal stenosis of lumbar region with neurogenic claudication Take 1 Capsule by mouth in the morning and 1 Capsule at noon and 1 Capsule before bedtime. 280 Capsule 3 12/04/2024 3:30 PM EST 4 Active Empagliflozin 25 MG Oral Tablet (Jardiance)Indica tions:Type 2 diabetes mellitus with diabetic peripheral angiopathy without gangrene, without long-term current use of insulin (HCC) Take 1 Tablet by mouth in the [...] as of this encounter (statuses as of 12/11/2024) Active Problems Problem Noted Date Diagnosed Date [...] as of this encounter (statuses as of 12/11/2024) Social History Tobacco Use Types Packs/Day Years [...] 07/11/2024 Does the household have a re lar source of income? (Household - for ages [...] PM EST documented as of this encounter Plan of Treatment Upcoming Encounters Date Type Department Care Team (Late st Contact Info) Description 01/09/2025 3:00 PM EST Office Visit Ophthalmology, [facility] [address] [place] [address] Kennedy Barger, [address] [place] [id number] Health Maintenance Due Date Last Done Comments COVID-19 Vaccine (#1) 1950 Hepatitis C Screening 1963 DTap/Tdap Vaccines (1 - Tdap) 1965 Pneumococcal Vaccine: 50+ Years (1 of 2 - PCV) 1965 Zoster Vaccines (1 of 2) 1965 DXA Scan 2011 Influenza Vaccine (FLU shot) (#1) 2024 Albumin/Creatinine Ratio 01/07/20252 024, 07/27/2023, 09/25/2022 HbA1c 01/11/2025 07/11/2024, 05/0 [...] this encounter Medical Devices Implanted Type Area Network Security Administrator Device Identifier Shelf Expiration Date Model / Serial / Lot Lens Intraoc 25.5 - [id number] - [id number] Implanted:Qty: 1 on 01/30/2021 by Roberto Osorio MD at OR [facility] Left: Eye BAUSCH [employer] LOMB 07/22/2025 [id number] / [id number] / [id number] Lens Intraoc 26.0 - [id number] - [id number] Implanted:Qty: 1 on 02/11/2021 by Roberto Osorio MD at OR [facility] Right: Eye BAUSCH [employer] LOMB 06/21/2025 [id number] / [id number] / documented as of this encounter Care Teams Player Services Representative Relationship Specialty Start Date End Date Thomas Arredondo DO [address] [place] [id number] PCP - General Family Medicine 10/01/23 documented as of this encounter
--- OUTSIDE RECORDS SUMMARY | 2025-01-10 02:16 | External Medical Summary | Summary of Care ---
Author Name Unknown Organization [facility] Address [address] [place] [place] [facility] [place] [address] Phone [phone] Care Team Providers Care Press Tender Short Goods Name Role Phone Thomas Arredondo DO Primary Care Provider [phone] Reason for Visit * Reason Comments Medication Refill Encounter Details Date Type Department Care Team (Late st Contact Info) Description 08/23/2024 Refill Family Practice 65 [facility] [place] [address] [place] [address] Thomas Arredondo DO [address] [place] [address] Allergies No known active allergiesdocumented as of this encounter (statuses as of 08/23/2024) Medications Medication Sig Dispensed Refills Start Date End Date Status OneTouch Ultra In Vitro Strip (Glucose Blood) test three times a day 300 Strip 11 08/02/2023 Active PreserVision AREDS 2+Multi Vit Oral Capsule Take by mouth 2 times a day. Active Lisinopril-hydroCH LOROthiazide 20-25 MG Oral Tablet Take 1 Tablet by mouth in the morning. 07/08/2022 Active Empagliflozin 10 MG Oral Tablet (Jardiance)Indicat ions:Type 2 diabetes mellitus with hyperglycemia, without long-term current use of insulin (HCC) Take 1 Tablet by mouth in the morning. 90 Tablet 4 03/30/2024 Active NATURAL SUPPLEMENT Take 6 Tablets by mouth in the morning. "Three"-takes 6 pills throughout the day with natural vitamins-B12, D, and other vitamins.. Active rOPINIRole HCl 0.25 MG Oral Tablet (Requip) Take 2 tablets by mouth at bedtime for restless legs 180 Tablet 3 06/29/2024 Active Gabapentin 300 MG Oral Capsule (Neurontin)Indicat ions:Type 2 diabetes mellitus with diabetic polyneuropathy, without long-term current use of insulin ([facility]),Lumbar degenerative disc disease,Spinal stenosis of lumbar region with neurogenic claudication Take 1 Capsule by mouth in the morning and 1 Capsule at noon and 1 Capsule before bedtime. 07/11/2024 Active glipiZIDE ER 10 MG Oral Tablet Extended Release 24 Hour (Glucotrol XL) take one tablet by mouth twice a day; with meals 180 Tablet 3 08/23/2024 Active metFORMIN HCl 1000 MG Oral Tablet (Glucophage) take one tablet by mouth twice a day 180 Tablet 3 08/23/2024 Active glipiZIDE ER 10 MG Oral Tablet Extended Release 24 Hour (Glucotrol XL) take one tablet by mouth twice a day; with meals 60 Tablet 07/26/2024 4 Discontinue d(Refill) metFORMIN HCl 1000 MG Oral Tablet (Glucophage) take one tablet by mouth twice a day 60 Tablet 07/26/2024 4 Discontinue d(Refill) Hospital, Clinic, or Other Facility Administered Medication [...] as of this encounter (statuses as of 08/23/2024) Active Problems Problem Noted Date Diagnosed Date Lumbar degenerative disc disease 07/11/2024 Spinal stenosis [...] as of this encounter (statuses as of 08/23/2024) Social History Tobacco Use Types Packs/Day Years [...] No 07/11/2024 Does the household have a [facility] source of income? (Household - for ages [...] 07/11/2024 Transportation Needs Answer Date Record ed READ ONLY Do you have troubl e getting a ride to medical visits or work? Never True 07/11/2024 Does your family have a hard [...] place to sleep at night? No 07/11/2024 READ ONLY Do you think you a re at risk of becoming homeless? No 07/11/2024 Does your family worry about paying [...] ages 0-17 years) Not on file 07/11/2024 Sex and Gender Information Value Date Recorded Sex Assigned at Female 10/01/2023 12:48 PM EST Gender Identity Female 10/01/2023 12:48 PM EST Sexual Orientation Straight 10/01/2023 12 :48 PM EST Job Start Date Occupation Industry Not on file Not on file Not on file documented as of this encounter Miscellaneous Notes * Telephone Encounter - Thomas Arredondo DO - 08/23/2024 12:37 PM EDTSigned Prescriptions: Disp Refills glipiZIDE ER 10 MG Oral Tablet Extended Re*180 Ta*3 Sig: take one tablet by mouth twice a day; with meals Authorizing Provider: THOMAS ARREDONDO metFORMIN HCl 1000 MG Oral Tablet (Glucoph*180 Ta*3 Sig: take one tablet by mouth twice a day Authorizing Provider: THOMAS ARREDONDO -------- * Telephone Encounter - Thomas Arredondo DO - 08/23/2024 12:37 PM EDTSigned Prescriptions: Disp Refills glipiZIDE ER 10 MG Oral Tablet Extended Re*180 Ta*3 Sig: take one tablet by mouth twice a day; with meals Authorizing Provider: THOMAS ARREDONDO metFORMIN HCl 1000 MG Oral Tablet (Glucoph*180 Ta*3 Sig: take one tablet by mouth twice a day Authorizing Provider: THOMAS ARREDONDO -------- * Telephone Encounter - Rebecca Hurst LPN - 08/23/2024 11:16 AM EDT Pending Prescriptions: Disp Refills glipiZIDE ER 10 MG Oral Tablet Extended Re*180 Ta*3 Sig: take one tablet by mouth twice a day; with meals metFORMIN HCl 1000 MG Oral Tablet (Glucoph*180 Ta*3 Sig: take one tablet by mouth twice a day * Telephone Encounter - Rebecca Hurst LPN - 08/23/2024 11:13 AM EDT Did you pend patient's preferred pharmacy and medication before forwarding?yes [facility] Pending Prescriptions: Disp Refills glipiZIDE ER 10 MG Oral Tablet Extended R*180 Ta*3 Sig: take one tablet by mouth twice a day; with meals metFORMIN HCl 1000 MG Oral Tablet (Glucop*180 Ta*3 Sig: take one tablet by mouth twice a day Last Visit: 07/11/2024 (in office), Visit date not found (telemedicine) Next Visit: 10/09/2024 If no future appointments scheduled, and last appointment is greater than a year ago, please schedule patient for a follow-up appointment Last date the medication was ordered: 07/26/24 Is this request for a controlled substance?No Urine Drug Screen:No results found for this or any previous visit. Patient Phone Numbers Labs: Lab Results Component Value Date/Time CREAT 0.9 07/11/2024 11:04 AM CREAT 0.70 09/15/2023 12:00 AM POTASSIUM 4.5 07/11/2024 11:04 AM POTASSIUM 4.3 09/15/2023 12:00 AM TSH 1.890 06/02/2023 12:00 AM LDL 118 03/30/2024 10:49 AM LDLCALC 112 (A) 06/02/2023 12:00 AM ALT 20 03/30/2024 10:49 AM HGBA1C 7.7 (H) 07/11/2024 11:04 AM HGBA1C 8.1 (A) 09/15/2023 12:00 AM * Telephone Encounter - Erendira Domínguez LPN - 08/23/2024 10:45 AM EDTPending Prescriptions: Disp Refills glipiZIDE ER 10 MG Oral Tablet Extended Re*60 Tab*0 Sig: take one tablet by mouth twice a day; with meals metFORMIN HCl 1000 MG Oral Tablet (Glucoph*60 Tab*0 Sig: take one tablet by mouth twice a day * Telephone Encounter - Elvira Gill CPhT - 08/23/2024 10:03 AM EDT Pharmacy calling to request a refill on metformin 1000mg and glipizide er 10mg. Medication was lastprescribed by Dr Oneil Swain but patient is asking if PCP can take over the medication. Please advise if this is appropriate and send to [facility] if agreeable. Thank you, Elvira Gill CphT Cat Scanner Operator III [facility] 08/23/24 documented in this encounter Plan of Treatment Upcoming Encounters Date Type Department Care Team (Late st Contact Info) Description 10/09/2024 10:40 AM EST Office Visit Family Practice [address] [place] [address] [place] [address] Thomas Arredondo DO [address] [place] [address] 2024 3:15 PM EST Office [facility], [facility] [address] [facility] [place] [address] Kennedy Barger DO [address] [place] [address] Health Maintenance Due Date Last Done Comments COVID-19 Vaccine (#1) 1950 Pneumococcal Vaccine: 65+ Years (1 of 2 - PCV) 1952 Hepatitis C Screening 1964 DTap/Tdap Vaccines (1 - Tdap) 1965 Zoster Vaccines (1 of 2) 1965 [...] this encounter Medical Devices Implanted Type Area Certified Prosthetist Device Identifier Shelf Expiration Date Model / Serial / Lot Lens Intraoc 25.5 - [id number] - [id number] Implanted:Qty: 1 on 01/30/2021 by Roberto Osorio MD at OR [facility] Left: Eye BAUSCH & LOMB 07/22/2025 [id number] / [id number] Lens Intraoc 26.0 - [id number] - [id number] Implanted:Qty: 1 on 02/11/2021 by Roberto Osorio MD at OR [facility] Right: Eye BAUSCH & LOMB 06/21/2025 [id number] / [id number] / documented as of this encounter Care Teams Press Tender Short Goods Relationship Specialty Start Date End Date Thomas Arredondo DO [address] [place] [id number] PCP - General Family Medicine 10/01/23 documented as of this encounter
--- OUTSIDE RECORDS SUMMARY | 2025-01-10 02:16 | External Medical Summary | Summary of Care ---
Author Name Unknown Organization [facility] Address [address] [facility] [address] [facility] [address] [address] Phone [phone] Care Team Providers Care Skull Splitter Name Role Phone Thomas Arredondo DO Primary Care Provider [phone] Reason for Visit * Reason Onset Date Comments Medication Refill 08/28/2024 Encounter Details Date Type Department Care Team (Late st Contact Info) Description 08/28/2024 Refill Family Practice 65 [facility] [address] [place] [address] Thomas Arredondo DO [address] [place] [address] Type 2 diabetes mellitus with diabetic polyneuropathy, without long-term current use of insulin (HCC); Lumbar degenerative disc disease; Spinal stenosis of lumbar region with neurogenic claudication Allergies No known active allergiesdocumented as of this encounter (statuses as of 08/28/2024) Medications Medication Sig Dispensed Refills Start Date [...] hyperglycemia, without long-term current use of insulin ([facility]) Take 1 Tablet by mouth in the morning. 90 Tablet 4 03/30/2024 Active NATURAL SUPPLEMENT Take 6 Tablets by mouth in the morning. "Three"-takes 6 pills throughout the day with natural vitamins-B12, D, and other vitamins.. Active glipiZIDE ER 10 MG Oral Tablet Extended Release 24 Hour (Glucotrol XL) take one tablet by mouth twice a day with meals 180 Tablet 3 08/23/2024 Active metFORMIN HCl 1000 MG Oral Tablet (Glucophage) take one tablet by mouth twice a day 180 Tablet 3 08/23/2024 Active rOPINIRole HCl 0.25 MG Oral Tablet (Requip) Take 2 tablets by mouth at bedtime for restless legs 200 Tablet 3 08/25/2024 Active Gabapentin 300 MG Oral Capsule (Neurontin)Indicat ions:Type 2 diabetes mellitus with diabetic polyneuropathy, without long-term current use of insulin ([facility]),Lumbar degenerative disc disease,Spinal stenosis of lumbar region with neurogenic claudication Take 1 Capsule by mouth in the morning and 1 Capsule at noon and 1 Capsule before bedtime. 280 Capsule 3 08/28/2024 Active Gabapentin 300 MG Oral Capsule (Neurontin)Indicat ions:Type 2 diabetes mellitus with diabetic polyneuropathy, without long-term current use of insulin ([facility]),Lumbar degenerative disc disease,Spinal stenosis of lumbar region with neurogenic claudication Take 1 Capsule by mouth in the morning and 1 Capsule at noon and 1 Capsule before bedtime. 07/11/2024 Discontinue d(Refill) Hospital, Clinic, or Other Facility [...] as of this encounter (statuses as of 08/28/2024) Active Problems Problem Noted Date Diagnosed Date [...] as of this encounter (statuses as of 08/28/2024) Social History Tobacco Use Types Packs/Day Years [...] No 07/11/2024 Does the household have a [facility] source of income? (Household - for ages [...] Telephone Encounter - Thomas Arredondo DO - 08/28/2024 1:02 PM EDTSigned Prescriptions: Disp Refills Gabapentin 300 MG Oral Capsule (Neurontin) 280 Ca*3 Sig: Take 1 Capsule by mouth in the morning and 1 Capsule at noon and 1 Capsule before bedtime. Authorizing Provider: THOMAS ARREDONDO * Telephone Encounter - Rebecca Hurst LPN - 08/28/2024 11:59 AM EDT Pending Prescriptions: Disp Refills Gabapentin 300 MG Oral Capsule (Neurontin) 280 Ca*3 Sig: Take 1 Capsule by mouth in the morning and 1 Capsule at noon and 1 Capsule before bedtime. * Telephone Encounter - Rebecca Hurst LPN - 08/28/2024 11:59 AM EDT Did you pend patient's preferred pharmacy and medication before forwarding?yes Pharmacy: [facility] Pending Prescriptions: Disp Refills Gabapentin 300 MG Oral Capsule (Neurontin)280 Ca*3 Sig: Take 1 Capsule by mouth in the morning and 1 Capsule at noon and 1 Capsule before bedtime. Last Visit: 07/11/2024 (in office), Visit date not found (telemedicine) Next Visit: 10/09/2024 If no future appointments scheduled, and last appointment is greater than a year ago, please schedule patient for a follow-up appointment Last date the medication was ordered: 07/11/24 Is this request for a controlled substance?No [...] 09/15/2023 12:00 AM * Telephone Encounter - Felipa Ricardo OSA - 08/28/2024 10:47 AM EDT Did you pend patient's preferred pharmacy and medication before forwarding? Pharmacy: [facility] Pending Prescriptions: Disp Refills Gabapentin 300 MG Oral Capsule (Neurontin) Sig: Take 1 Capsule by mouth in the morning and 1 Capsule at noon and 1 Capsule before bedtime. Last Visit: 07/11/2024 (in office), Visit date not found (telemedicine) Next Visit: 10/09/2024 If no future appointments scheduled, and last appointment is greater than a year ago, please schedule patient for a follow-up appointment Last date the medication was ordered: Is this request for a controlled substance? Urine Drug Screen:No results found for this [...] AM HGBA1C 8.1 (A) 09/15/2023 12:00 AM documented in this encounter Plan of Treatment Upcoming Encounters Date Type Department Care Team (Late st Contact Info) Description 10/09/2024 10:40 AM EST Office Visit Family Practice [address] [place] [address] [place] [address] Thomas Arredondo DO [address] [place] [address] 2024 3:15 PM EST Office Visit Ophthalmology, [facility] [address] [place] [address] Kennedy Barger DO [address] [place] [address] Health Maintenance Due Date Last Done Comments COVID-19 Vaccine (#1) 1950 Pneumococcal Vaccine: 65+ Years (1 of 2 - PCV) 1951 Hepatitis C Screening 1964 DTap/Tdap Vaccines (1 - Tdap) 1965 Zoster Vaccines (1 of 2) 1965 DXA Scan 2011 Influenza Vaccine (FLU shot) (#1) 2024 Albumin/Creatinine Ratio 01/07/202501/07/2 024, 07/27/2023, 09/25/2022 HbA1c 01/11/2025 07/11/2024, 05/0 [...] this encounter Medical Devices Implanted Type Area Chimney Builder Device Identifier Shelf Expiration Date Model / Serial / Lot Lens Intraoc 25.5 - [id number] - [id number] Implanted:Qty: 1 on 01/30/2021 by Roberto Osorio MD at OR [facility] Left: Eye BAUSCH & LOMB 07/22/2025 [id number] / [id number] / [id number] Lens Intraoc 26.0 - [id number] - [id number] Implanted:Qty: 1 on 02/11/2021 by Roberto Osorio MD at OR [facility] Right: Eye BAUSCH & LOMB 06/21/2025 [id number] / [id number] / documented as of this encounter Visit Diagnoses Diagnosis Type 2 diabetes mellitus with diabetic polyneuropathy, without long-term current use of insulin (HCC) Lumbar degenerative disc disease Degeneration of lumbar or lumbosacral intervertebral disc Spinal stenosis of lumbar region with neurogenic claudication Spinal stenosis, lumbar region, with neurogenic claudication documented in this encounter Care Teams Skull Splitter Relationship Specialty Start Date End Date Thomas Arredondo DO [address] [place] [phone] PCP - General Family Medicine 10/01/23 documented as of this encounter
--- OUTSIDE RECORDS SUMMARY | 2025-01-10 02:16 | External Medical Summary | Summary of Care ---
Author Name Unknown Organization [facility] Address [address] [facility] [address] Phone [phone] Care Team Providers Care Vp Data Name Role Phone Maria Elena Thomas Primary Care Provider [phone] Reason for Visit * Reason Comments Follow Up 6-8 week f/u; pt has no new complaints since BOWEN Encounter Details Date Type Department Care Team (Late st Contact Info) Description 08/22/2024 3:15 PM EDT Office Visit Ophthalmology, [facility] [address] [place] [address] Kennedy Barger DO [address] [place] [address] 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 eye with active choroidal neovascularization (HCC)*; Intermediate stage nonexudative age-related macular degeneration of right eye; 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 Active Lisinopril-hydroCHLO ROthiazide 20-25 MG Oral Tablet Take 1 Tablet by mouth in the morning. 07/08/2022 Active Empagliflozin 10 MG Oral Tablet (Jardiance)Indicatio ns:Type 2 diabetes mellitus with hyperglycemia, without long-term current use of insulin ([facility]) Take 1 Tablet by mouth in the [...] 06/29/2024 Active Gabapentin 300 MG Oral Capsule (Neurontin)Indicatio ns:Type 2 diabetes mellitus with diabetic polyneuropathy, without long-term current use of insulin ([facility]),Lumbar degenerative disc disease,Spinal stenosis of lumbar region with neurogenic claudication Take 1 Capsule by mouth in the morning and 1 Capsule at noon and 1 Capsule before bedtime. 07/11/2024 Active glipiZIDE ER 10 MG Oral Tablet Extended Release 24 Hour (Glucotrol XL) take one tablet by mouth twice a day; with meals 60 Tablet 07/26/2024 Active metFORMIN HCl 1000 MG Oral Tablet (Glucophage) take one tablet by mouth twice a day 60 Tablet 07/26/2024 Active Hospital, Clinic, or Other Facility Administered [...] as of this encounter (statuses as of 08/22/2024) Active Problems Problem Noted Date Diagnosed Date [...] as of this encounter (statuses as of 08/22/2024) Social History Tobacco Use Types Packs/Day Years [...] No 07/11/2024 Does the household have a [facility] source of income? (Household - for ages [...] on file documented as of this encounter Progress Notes * Kennedy Barger, DO - 08/22/2024 3:15 PM EDT [facility] [place] Nursing Notes: Cassi Morales, MED ASSIST 08/22/24 1516 Signed Andreia Pulido is a 78 year old year old female who presents for AMD/Mod NPDR OU. Last Office Visit: 06/12/2024 (in office), Visit date not found (telemedicine) [...] both eyes acquired and filed/scanned into chart. Base Eye Exam Visual Acuity (Snellen - Linear) Right Left Dist sc 20/100 -2 CF2' Dist ph sc 20/70 -1 Tonometry (Tonopen, 3:14 PM) Right Left Pressure 12 11 Pupils Dark Shape React APD Right 4.5 Round Minimal None Left 4.5 Round Minimal None Visual Reid (Counting fingers) Right Left Full Full Extraocular Movement Right Left Full, Ortho Full, Ortho Neuro/Psych Oriented x3: Yes Mood/Affect: Normal Dilation Both eyes: 0.5% Proparacaine @ 3:12 PM Dilation #2 Both eyes: 1.0% Mydriacyl, 2.5% Phenylephrine @ 3:14 PM Dilation #3 Both eyes: 1.0% Mydriacyl, 2.5% Phenylephrine @ 3:16 PM Dilation Comments Patient cautioned that effects of dilation may last 2-7 hours dependant upon individual reaction. It was discussed that driving while dilated is not recommended. EXTERNAL: The ocular adnexae are unremarkable. SLE: Lids/Lashes: wnl OU Conjunctiva/Sclera: quiet OU Cornea: clear OU Anterior Chamber: deep and quiet OU Iris: normal OU; no NVI OU Lens: PCIOL OU Dilated fundus exam OD: vitreous: clear optic nerve: 0.3, no edema/pallor/NVD macula: drusen, end user support specialist vessels: wnl periphery: end user support specialist, no RT/RD Dilated fundus exam OS: vitreous: clear optic nerve: 0.3, no edema/pallor/NVD macula: drusen, disciform scar vessels: wnl periphery: end user support specialist, no RT/RD OCT Interpretation: OD: drusen, no irf/srf--stable OS: drusen, ped w/ srf/irf--worse, prior worse 90um prior improved A/P: 1. Age-Related Macular Degeneration OD: dry -recommend AREDS2 MVI as directed and Amsler grid qday -monitor OS: wet -Avastin 04/12/24, 02/29/2024 -19 weeks -VA poor w/ central disciform scar; hold further injections for now 2. Moderate Nonproliferative Diabetic Retinopathy OU -monitor -recommend HgbA1C <7, BP and lipid control. 3. Pseudophakia OU -stable -currently not legal to drive at nightime, pt. understands F/u 12-14 weeks, OCT + OCTA OU Kennedy Barger DO CC: Dr. Sharma CC: PCP: Thomas Roche DO documented in this encounter Nursing Notes * Cassi Morales, DONALDO ASSIST - 08/22/2024 3:08 PM EDT Andreia Pulido is a 78 year old year old female who presents for AMD/Mod NPDR OU. Last Office Visit: 06/12/2024 (in office), Visit date not found (telemedicine) [...] AM EST Office Visit Family Practice 65 [facility] [place] [address] [place] [address] Thomas Roche DO [address] [place] [address] 2024 3:15 PM EST Office Visit Ophthalmology, [facility] [address] [place] [address] Kennedy Barger DO [address] [place] [address] Scheduled Orders Name Type Priority Associated Diagnoses Orde r Schedule RETINA SCAN DIAGNOSTIC IMAGE, POSTERIOR Procedures Routine 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 eye with active choroidal neovascularization (HCC) Intermediate stage nonexudative age-related macular degeneration of right eye 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 associated with type 2 diabetes mellitus (HCC) Ordered: 08/22/2024 Health Maintenance Due Date Last Done Comments [...] this encounter Medical Devices Implanted Type Area Tour Counselor Device Identifier Shelf Expiration Date Model / Serial / Lot Lens Intraoc 25.5 - [id number] - [id number] Implanted:Qty: 1 on 01/30/2021 by Roberto Osorio MD at OR [facility] Left: Eye BAUSCH & LOMB 07/22/2025 [id number] / [id number] / [id number] Lens Intraoc 26.0 - [id number] - [id number] Implanted:Qty: 1 on 02/11/2021 by Roberto Osorio MD at OR [facility] Right: Eye BAUSCH & LOMB 06/21/2025 [id number] / [id number] / documented as of this encounter Visit Diagnoses Diagnosis 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 eye with active choroidal neovascularization (HCC)- Primary Intermediate stage nonexudative age-related macular degeneration of right eye 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
--- OUTSIDE RECORDS SUMMARY | 2025-01-10 02:16 | External Medical Summary | Summary of Care ---
Author Name Unknown Organization [facility] Address [address] [address] [address] Phone [phone] Care Team Providers Care Client Development Director Name Role Phone Thomas Arredondo DO Primary Care Provider + [phone] Reason for Visit * Reason Comments Follow Up Pt here for 3m follo w up Encounter Details Date Type Department Care Team (Latest Contact Info) Description 10/09/2024 10:40 AM EST Office Visit Family Practice [address] [place] [address] [address] [place] [address] Thomas Arredondo DO [address] [place] [address] Hypertension goal BP (blood pressure) < 140/90*; Type 2 diabetes mellitus with diabetic peripheral angiopathy without gangrene, without long-term current use of insulin ([facility]); 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, without long-term current use of insulin, macular edema presence unspecified ([facility]); Macular degeneration of both eyes, unspecified type; Dyslipidemia, goal LDL below 70; Degeneration of intervertebral disc of lumbar region with discogenic back pain; Onychomycosis; Risk and functional assessment; Encounter for long-term (current) use of medications Allergies No known active allergiesdocumented as of this encounter (statuses as of 10/11/2024) Medications OneTouch Ultra In Vitro Strip (Glucose Blood) test three times a day 300 Strip 11 3 Active PreserVision AREDS 2+Multi Vit Oral Capsule Take by mouth 2 times a day. Active Lisinopril-hydro CHLOROthiazide 20-25 MG Oral Tablet Take 1 Tablet by mouth in the morning. 2 Active NATURAL SUPPLEMENT Take 6 Tablets by mouth in the morning. "Three"-takes 6 pills throughout the day with natural vitamins-B12, D, and other vitamins.. Active glipiZIDE ER 10 MG Oral Tablet Extended Release 24 Hour (Glucotrol XL) take one tablet by mouth twice a day with meals 180 Tablet 3 08/24/2024 10:12 AM EDT 4 Active metFORMIN HCl 1000 MG Oral Tablet (Glucophage) take one tablet by mouth twice a day 180 Tablet 3 08/24/2024 10:12 AM EDT 4 Active rOPINIRole HCl 0.25 MG Oral Tablet (Requip) Take 2 tablets by mouth at bedtime for restless legs 200 Tablet 3 09/11/2024 10:04 AM EDT 4 Active Gabapentin 300 MG Oral Capsule (Neurontin)Indic ations:Type 2 diabetes mellitus with diabetic polyneuropathy, without long-term current use of insulin (HCC),Lumbar degenerative disc disease,Spinal stenosis of lumbar region with neurogenic claudication Take 1 Capsule by mouth in the morning and 1 Capsule at noon and 1 Capsule before bedtime. 280 Capsule 3 09/11/2024 3:30 PM EDT 4 Active Empagliflozin 25 MG Oral Tablet (Jardiance)Indic ations:Type 2 diabetes mellitus with diabetic peripheral angiopathy without gangrene, without long-term current use of insulin (HCC) Take 1 Tablet by mouth in the morning. 90 Tablet 3 4 Active Empagliflozin 10 MG Oral Tablet (Jardiance)Indic ations:Type 2 diabetes mellitus with hyperglycemia, without long-term current use of insulin (HCC) Take 1 Tablet by mouth in the morning. 90 Tablet 4 07/26/2024 8:28 AM EDT 4 024 Discontin ued(Medic ation/Dos e Changed) Hospital, Clinic, or Other Facility Administered Medication [...] as of this encounter (statuses as of 10/11/2024) Active Problems Problem Noted Date Diagnosed Date [...] as of this encounter (statuses as of 10/11/2024) Social History Tobacco Use Types Packs/Day Years [...] PM EST documented as of this encounter Last Filed Vital Signs Vital Sign Reading Time Taken Comments Blood Pressure 142/82 10/09/2024 10:35 AM EST Pulse 92 10/09/2024 10:35 AM EST Temperature 36.6 C (97.9 F) 10/09/2024 10:[address] Respiratory Rate 16 10/09/2024 10:35 AM EST Oxygen Saturation 98% 10/09/2024 10:35 AM EST Inhaled Oxygen Concentration - - Weight 86 kg (189 lb 8 oz) 10/09/2024 10:[address] Height 162.6 cm (5' 4") 10/09/2024 10:35 AM EST Body Mass Index 32.53 10/09/2024 10:35 AM EST documented in this encounter Patient Instructions * Patient Instructions* Billie Yeboah CCMA - 10/09/2024 10:32 AM EST Patient Instructions - Fall Prevention (This education is for all patients over 65 regardless of symptoms) Remember to take your current medications as prescribed. In order to prevent falls, you are encouraged to: Exercise Utilize assistive/adaptive devices Avoid multifocal lenses when walking Avoid hazards in home Maintain a regular toileting schedule Any questions please contact our office. Preventing Falls in the Home (This education is for all patients over 65 regardless of symptoms) As you get older, falls are more likely. Thats because your reaction time slows. Your muscles and joints may also get stiffer, making them less flexible. Illness, medications, and vision changes can also affect your balance. A fall could leave you unable to live on your own. To make your home safer, follow these tips: Floors Put nonskid pads under area rugs Remove throw rugs Replace worn floor coverings Tack carpets firmly to each step on carpeted stairs. Put nonskid strips on the edges of uncarpeted stairs Keep floors and stairs free of clutter and cords Arrange furniture so there are clear pathways Clean up any spills right away Bathrooms Install grab bars in the tub or shower Apply nonskid strips or put a nonskid rubber mat in the tub or shower Sit on a bath chair to bathe Use bathmats with nonskid backing Lighting Keep a flashlight in each room Put a nightlight along the pathway between the bedroom and the bathroom [employer] Patient Education Copyright 2008 - 2010 [employer] except where otherwise noted Preventing Falls: Exercises to Improve Balance, Flexibility, Strength, and Staying Power (This education is for all patients over 65 regardless of symptoms) Certain types of exercises may help make you less likely to fall. Try the ones below. Or do other exercises that your healthcare provider suggests. Depending on your health, you may need to start slowly. Dont let that stop you. Even small amounts of exercise can help you. Be sure to talk to yourhealthcare provider before starting any exercise program. Improve Balance Many types of exercise can help improve balance. Enrique chi and yoga are good examples. Heres another one to try. You can do it anytime and almost anywhere. Stand next to a counter or solid support. Push yourself up onto your tiptoes. Hold for 5 seconds. If you start to lose your balance, hold on to the counter. Rest and repeat 5 times. Work up to holding for 20 to 30 seconds, if you can. Increase Flexibility Being more flexible makes it easier for you to move around safely. Try exercises like the seated hamstring stretch. Sit in a chair and put one foot on a stool. Straighten your leg and reach with both hands down either side of your leg. Reach as far down your leg as you can. Hold for about 20 seconds. Go back to the starting position. Then repeat 5 times. Switch legs. Build Strength Resistance exercises help build strength. You can do them without equipment. Or you can use weights, elastic bands, or special machines. One such exercise is called the biceps curl. You can hold a 1 pound weight or even a can of soup. Do this exercise at least 3 times a week. Strive for everyday. Sit up straight in a chair. Keep your elbow close to your body and your wrist straight. Bend your arm, moving your hand up to your shoulder. Then slowly lower your arm. Repeat 5 times. Switch to the other arm. Build Your Staying Power Aerobic exercises make your heart and lungs stronger so you can keep moving longer. Walking and swimming are two of the best types of exercises you can do. Using a stationary bike is great, too. Find an aerobic exercise that you enjoy. Start slowly and build up. Even 5 minutes is helpful. Aimfor a goal of 30 minutes, at least 3 times a week. You dont have to do 30 minutes in one session. Break it up and walk a little throughout the day. More Helpful Tips Start easy. Slowly work up to doing more. Talk with your healthcare provider about the best exercises for you. Call senior centers or health clubs about exercise programs. If needed, have a family member watch you walk every so often to check your stability. Exercise with a friend. Choose an activity you both enjoy. Try exercises that you can do anytime, anywhere. Here are two examples. Have someone with you when you first try these: Practice walking by placing one foot right in front of the other. Stand up and sit down 10 times. Repeat this throughout the day. [employer] Patient Education Copyright 2009 - 2010 [employer] except where otherwise noted. Preventing Falls: Moving Safely Using a Cane or Walker (This education is for all patients over 65 regardless of symptoms) Keep the cane away from your feet so you dont trip. A walking aid, such as a cane or walker, can help you stay more independent and avoid falls. Remember to keep your walking aid within easy reach when youre in a chair or in bed. And learn how to use it safely so you dont injure yourself. Using a Cane If you have a stronger side, hold the cane on that side. Get your balance. Move the cane and your weaker leg forward. Support your weight on both the cane and your weaker side. Step with your stronger leg. Start again from step 1. If youre using a folding walker, be sure you know how to lock it open. Check that its locked open before each use. Using a Walker Roll the walker (or lift it, if youre using one without wheels) forward about 12 inches. Step forward with your weaker leg first. Use the walker to help keep your balance. Bring your other foot forward to the center of the walker. Start again from step 1. Helpful Tips Check with your healthcare provider about the right walking aid to use. Ask about a walker with a seat attached. Check the tips of your cane or walker to make sure they have nonskid covers. Move slowly from room to room. Dont wiggins. Sit down to get dressed. Use a angela pack or backpack to keep your hands free. Get help for jobs that mean climbing, even on a stepstool. [employer] Patient Education Copyright 2008 - 2010 [employer] except where otherwise noted. Urinary Incontinence Plan of Care Documentation: (This education is for all patients over 65 regardless of symptoms) Current medications reconciled. Patient encouraged to: Practice kegal exercises Provide education materials Use the restroom every 2 hours throughout the day Limit caffeine, alcohol, spicy foods and acidic foods Keep a bladder diary Limit fluid intake 3-4 hours before bed Lose weight Prevent constipation Take fluid pills at a time when you can get to the bathroom quickly Control sugar better if diabetic Limit fluid intake to 60 oz. per day Wear support stockings (TEDs)if you have edema GAYLA Almazan 10/09/2024 Kegel Exercises Kegel exercises dont require special clothing or equipment. Theyre easy to learn and simple to do. And if you do them right, no one can tell youre doing them, so they can be done almost anywhere. Your doctor, nurse, or physical therapist can answer any questions you have and help you get started. A Weak Pelvic Floor The pelvic floor muscles may weaken due to aging, and vaginal childbirth, injury, surgery, chronic cough, or lack of exercise. If the pelvic floor is weak, your bladder and other pelvic organs may sag out of place. The urethra may also open too easily and allow urine to leak out. Kegel exercises can help you strengthen your pelvic floor muscles so they can better support the pelvic organs and control urine flow. How Kegel Exercises Are Done Try each of the Kegel exercises described below. When youre doing them, try not to move your leg, buttock, or stomach muscles. While youre urinating, try to stop the flow of urine. Start and stop it as often as you can. Contract as if you were stopping your urine stream, but do it when youre not urinating. Tighten your rectum as if trying not to pass gas. Contract your anus, but dont move your buttocks. Helpful Hints Do your Kegels as often as you can. The more you do them, the faster youll feel the results. Pick an activity you do often as a reminder. For instance, do your Kegels every time you sit down. Tighten your pelvic floor before you sneeze, get up from a chair, cough, laugh, or lift. This protects your pelvic floor from injury and can help prevent urine leakage. Try to hold each Kegel for a slow count to five. You probably wont be able to hold them for thatlong at first, but keep practicing. It will get easier as your pelvic floor gets stronger. Eventually, special weights that you place in your vagina may be recommended to help make your Kegels even more effective. [employer] Patient Education Copyright 2008 - 2010 [employer] except where otherwise noted. Here are some helpful tips for your urinary incontinence: (This education is for all patients over 65 regardless of symptoms) Practice Kegel exercises Use the restroom every 2 hours throughout the day Limit caffeine, alcohol, spicy foods, and acidic foods Keep a bladder diary Limit fluid intake 3-4 hours before bed Lose weight Prevent constipation Take fluid pills at a time when can get to the bathroom quickly Control sugar better if diabetic Limit fluid intake to 60 oz. per day Any questions, please feel free to contact our office. documented in this encounter Progress Notes * Thomas Arredondo, - 10/09/2024 11:05 AM EST Images from the original note were not included. History of Present Illness Andreia Pulido is a 78 year old female that presents for Follow Up (Pt here for 3m follow up ) Patient is a 78-year-old female here for medical follow-up. Patient has a history of hypertension, diabetes mellitus type 2, peripheral vascular disease, diabetic retinopathy, macular degeneration, dyslipidemia, and lumbar degenerative disc disease. Patient feels generally well and is following a diet and exercise program. Patient is following with area director for diabetic retinopathy and macular degeneration. Patient denies polyuria polydipsia. Patient denies hypoglycemia. Patient states average home blood glucose greater than 200. Patient denies fatigue fever chills or sweats. Patient denies nasal congestion sore throat or earache. Patient denies cough or sputum. Patient denies chest pain shortness breath palpitations or edema. Patient denies abdominal pain nausea vomiting diarrhea constipation. Patient denies urinary frequency dysuria urgency or hematuria. Patient complains of chronic intermittent low back pain with intermittent loss of balance. Patient denies headache dizziness weakness or numbness. Patient denies skin rash or lesions. Review systems otherwise negative Physical Exam Vitals: 10/09/24 1035 Temp: 36.6 C (97.9 F) Pulse: 92 Resp: 16 SpO2: 98% BP: 142/82 BMI: 32.51 BP Readings from Last 3 Encounters: 10/09/24 142/82 07/11/24 128/64 06/29/24 118/70 Wt Readings from Last 3 Encounters: 10/09/24 189 lb 8 oz (86 kg) 07/11/24 191 lb 14.4 oz (87 kg) 06/29/24 186 lb 1.6 oz (84.4 kg) BMI Readings from Last 3 Encounters: 10/09/24 32.53 kg/m 07/11/24 32.94 kg/m 06/29/24 31.94 kg/m BP 142/82 (BP Site: Left Arm, BP Position: Sitting, BP Cuff Size: Regular) | Pulse 92 | Temp 97.9 F (36.6 C) | Resp 16 | Ht 5' 4" (1.626 m) | Wt 189 lb 8 oz (86 kg) | SpO2 98% | BMI 32.53 kg/m | BSA 1.97 m General: alert, healthy, and no distress Head: Normocephalic, No masses, lesions, tenderness or abnormalities Eye Exam: PERRLA, extraocular movements intact, conjunctiva are pink and non- injected, sclera clear Ears: External ears normal, Canals clear, TM's Normal Nose: no mucosal erythema, no mucosal edema, no purulent discharge Oropharynx: no exudate, no erythema, lips, buccal mucosa, and tongue normal, and mucous membranes are moist Neck: supple, no adenopathy, no bruits, thyroid normal size, non-tender, without nodularity Lymph: no palpable lymphadenopathy Heart: regular rate & rhythm, no murmur, and no gallops Lungs: chest symmetric with normal AP diameter, no chest deformities noted, no chest wall tenderness, lungs clear to auscultation Pulses: carotid=2/4 w/o bruits Abdomen: abdomen soft, non-tender, normal bowel sounds, and no masses or organomegaly Back: back symmetric, no curvature, no costovertebral angle tenderness, lumbar paravertebral musclespasm and tenderness decreased range of motion lumbar flexion L1-L5 Extremities: less than 2 second capillary refill, no joint deformities, effusion, or inflammation Neuro Exam: alert & oriented x 3 with fluent speech, no focal motor/sensory deficits, gait normal, reflexes normal and symmetric Skin: skin color, texture, turgor are normal, onychomycotic toenails bilateral I have reviewed the following results: PTH, ionized calcium, Hemoglobin A1C, and BMP Assessment and Plan Hypertension goal BP (blood pressure) < 140/90 Stable Continue present medication Lisinopril HCT 20-25 mg 1 tab once daily Increase Jardiance 25 mg 1 tab once daily - COMPREHENSIVE METABOLIC PANEL; Future Type 2 diabetes mellitus with diabetic peripheral angiopathy without gangrene, without long-term current use of insulin (HCC) - increase Empagliflozin 25 MG Oral Tablet (Jardiance); Take 1 Tablet by mouth in the morning. 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 Increase Jardiance 25 mg once daily Macular degeneration of both eyes, unspecified type Stable Follow with ophthalmology Dyslipidemia, goal LDL below 70 Stable Low-fat low-cholesterol high-fiber diet Consider start statin therapy, patient deferred - LIPID PANEL WITH DIRECT LDL IF TG IS HIGH; Future - COMPREHENSIVE METABOLIC PANEL; Future Degeneration of intervertebral disc of lumbar region with discogenic back pain Stable Modified home therapeutic exercise Continue present medication Gabapentin 300 mg 1 cap three times daily Avoid strenuous activities, no heavy lifting Tylenol OTC as directed p.r.n. Onychomycosis Advise referral podiatry Risk and functional assessment Encounter for long-term (current) use of medications - VITAMIN B12; Future Wrap-Up Time: I spent a total of 40-54 minutes (exact time 40 mins) on the date of service in preparation, delivery, and documentation of the care provided to Andreiacharlee Pulido excluding any time spent in the performance of separately billed services. * Billie Yeboah CCMA - 10/09/2024 10:32 AM EST Urinary Incontinence Plan of Care Documentation: (This education is for all patients over 65 regardless of symptoms) Current medications reconciled. Patient encouraged to: Practice kegal exercises Provide education materials Use the restroom every 2 hours throughout the day Limit caffeine, alcohol, spicy foods and acidic foods Keep a bladder diary Limit fluid intake 3-4 hours before bed Lose weight Prevent constipation Take fluid pills at a time when you can get to the bathroom quickly Control sugar better if diabetic Limit fluid intake to 60 oz. per day Wear support stockings (TEDs)if you have edema GAYLA Almazan 10/09/2024 documented in this encounter Nursing Notes * Billie Yeboah CCMA - 10/09/2024 10:33 AM EST Chief Complaint Patient presents with Follow Up Pt here for 3m follow up Patient has been verbally educated on the need or importance of Dexa Scan, COVID, Flu Vaccine, Pneumococcal Vaccine, Tdap Vaccine, and Shingles Vaccine and has declined topic(s). documented in this encounter Plan of Treatment Upcoming Encounters Date Type Department Care Team (Late st Contact Info) Description 2024 3:15 PM EST Office Visit Ophthalmology, [facility] [address] [id number] Kennedy Barger DO [address] [address] Scheduled Orders Name Type Priority Associated Diagnoses Orde r Schedule HEMOGLOBIN A1C Lab Routine Type 2 diabetes mellitus with diabetic peripheral angiopathy without gangrene, without long-term current use of insulin (HCC) Expected: 01/09/2025 (Approximate), Expires: 10/09/2025 LIPID PANEL WITH DIRECT LDL IF TG IS HIGH Lab Routine Dyslipidemia, goal LDL below 70 Expected: 01/09/2025, Expires: 10/09/2025 COMPREHENSIVE METABOLIC PANEL Lab Routine Hypertension goal BP (blood pressure) < 140/90 Type 2 diabetes mellitus with diabetic peripheral angiopathy without gangrene, without long-term current use of insulin (HCC) Dyslipidemia, goal LDL below 70 Expected: 01/09/2025 (Approximate), Expires: 10/09/2025 VITAMIN B12 Lab Routine Encounter for long-term (current) use of medications Expected: 01/09/2025 (Approximate), Expires: 10/09/2025 Health Maintenance Due Date Last Done Comments [...] Depression Screening 06/29/2025 06/29/2024 GFR 07/11/2025 07/11/2024, 050 07/2024, 01/03/2024, Additional history exists HPV (Gardasil) [...] this encounter Medical Devices Implanted Type Area Desizing Machine Operator Device Identifier Shelf Expiration Date Model / Serial / Lot Lens Intraoc 25.5 - [id number] - [id number] Implanted:Qty: 1 on 01/30/2021 by Roberto Osorio MD at OR [facility] Left: Eye [employer] 07/22/2025 [id number] / [id number] / [id number] Lens Intraoc 26.0 - [id number] - [id number] Implanted:Qty: 1 on 02/11/2021 by Roberto Osorio MD at OR [facility] Right: Eye [employer] 06/21/2025 [id number] / [id number] / documented as of this encounter Visit Diagnoses Diagnosis Hypertension goal BP (blood pressure) < 140/90- Primary Unspecified essential hypertension Type 2 diabetes mellitus with diabetic peripheral angiopathy without gangrene, without long-term current use of insulin (HCC) 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, without long-term current use of insulin, macular edema presence unspecified (HCC) Macular degeneration of both eyes, unspecified type Dyslipidemia, goal LDL below 70 Other and unspecified hyperlipidemia Degeneration of intervertebral disc of lumbar region with discogenic back pain Onychomycosis Dermatophytosis of nail Risk and functional assessment Screening for unspecified condition Encounter for long-term (current) use of medications Encounter for long-term (current) use of other medications documented in this encounter Care Teams Client Development Director Relationship Specialty Start Date End Date Thomas Arredondo DO [address] [address] PCP - General Family Medicine 10/01/23 documented as of this encounter
--- OUTSIDE RECORDS SUMMARY | 2025-01-10 02:16 | External Medical Summary | Summary of Care ---
Author Name Unknown Organization [facility] Address [address] [place] [facility] [place] [place] [address] Phone [phone] Care Team Providers Care Outsoles Channel Opener Name Role Phone Thomas Arredondo DO Primary Care Provider [phone] Reason for Visit * Reason Comments Follow Up Neuropathy going up legs Encounter Details Date Type Department Care Team (Latest Contact Info) Description 07/11/2024 11:00 AM EDT Office Visit Family Practice [address] [place] [address] [address] [place] [address] Thomas Arredondo DO [address] [place] [address] Hypertension goal BP (blood pressure) < 140/90*; Type 2 diabetes mellitus with diabetic polyneuropathy, without long-term current use of insulin (HCC); 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 associated with type 2 diabetes mellitus (HCC); Intermediate stage nonexudative age-related macular degeneration of both eyes; Dyslipidemia, goal LDL below 70; Onychomycosis; Lumbar degenerative disc disease; Spinal stenosis of lumbar region with neurogenic claudication; Gait disturbance Allergies No known active allergiesdocumented as of this encounter (statuses as of 07/14/2024) Medications Medication Sig Dispensed Refills Start Date End Date Status glipiZIDE ER 10 MG Oral Tablet Extended Release 24 Hour (Glucotrol XL) TAKE ONE TABLET BY MOUTH TWO TIMES A DAY WITH MEALS 180 Tablet 3 3 Active metFORMIN HCl 1000 MG Oral Tablet (Glucophage) TAKE ONE TABLET BY MOUTH TWO TIMES A DAY 180 Tablet 3 3 Active Glucose Blood In Vitro Strip use to test blood sugar as needed up to three times a day 100 Strip 11 3 Active OneTouch Ultra In Vitro Strip (Glucose Blood) test three times a day 300 Strip 11 3 Active PreserVision AREDS 2+Multi Vit Oral Capsule Take by mouth 2 times a day. Active Lisinopril-hydroC HLOROthiazide 20-25 MG Oral Tablet Take 1 Tablet by mouth in the morning. 2 Active Empagliflozin 10 MG Oral Tablet (Jardiance)Indica tions:Type 2 diabetes mellitus with hyperglycemia, without long-term current use of insulin (HCC) Take 1 Tablet by mouth in the morning. 90 Tablet 4 4 Active NATURAL SUPPLEMENT Take 6 Tablets by mouth in the morning. "Three"-takes 6 pills throughout the day with natural vitamins-B12, D, and other vitamins.. Active rOPINIRole HCl 0.25 MG Oral Tablet (Requip) Take 2 tablets by mouth at bedtime for restless legs 180 Tablet 3 4 Active Gabapentin 300 MG Oral Capsule (Neurontin)Indica tions:Type 2 diabetes mellitus with diabetic polyneuropathy, without long-term current use of insulin (HCC),Lumbar degenerative disc disease,Spinal stenosis of lumbar region with neurogenic claudication Take 1 Capsule by mouth in the morning and 1 Capsule at noon and 1 Capsule before bedtime. 4 Active Vitamin D (Cholecalciferol) 50 MCG (2000 UT) Oral Capsule Take 1 Tab by mouth daily. 07/11/20 24 Discontinued(Med ication List Clean Up) Turmeric Curcumin Oral Capsule Take 4 Tabs by mouth daily. 07/11/20 24 Discontinued(Med ication List Clean Up) Milk Thistle 250 MG Oral Capsule Take 1 Capsule by mouth in the morning and 1 Capsule before bedtime. 07/11/20 24 Discontinued(Med ication List Clean Up) B-12 5000 MCG Sublingual Tablet Sublingual Place under the tongue 2 times a day. 07/11/20 24 Discontinued(Med ication List Clean Up) Folic Acid 400 MCG Oral Tablet (Folate) Take 2 Tablets by mouth in the morning. 07/11/20 24 Discontinued(Enlighted List Clean Up) Gabapentin 300 MG Oral Capsule (Neurontin) Take 1 Capsule by mouth in the morning and 1 Capsule before bedtime. 200 Capsule 3 4 07/11/20 24 Discontinued Hospital, Clinic, or Other Facility Administered Medication [...] as of this encounter (statuses as of 07/14/2024) Active Problems Problem Noted Date Diagnosed Date [...] as of this encounter (statuses as of 07/14/2024) Social History Tobacco Use Types Packs/Day Years Used Date Smoking Tobacco: Former Cigarettes 1 17 1 12/21/1975 - 10/21/1993 Passive Smoke Exposure: Current Smokeless Tobacco: Never Tobacco Cessation:Counseling Given: Yes Alcohol Use Standard Drinks/Week Comments Yes 0 [...] on file documented as of this encounter Last Filed Vital Signs Vital Sign Reading Time Taken Comments Blood Pressure 128/64 07/11/2024 11:14 AM EDT Pulse 76 07/11/2024 11:14 AM EDT Temperature 36.9 C (98.5 F) 07/11/2024 11:14 AM E DT Respiratory Rate - - Oxygen Saturation 97% 07/11/2024 11:14 AM EDT Inhaled Oxygen Concentration - - Weight 87 kg (191 lb 14.4 oz) 07/11/2024 11:14 A M EDT Height - - Body Mass Index 32.94 06/29/2024 10:24 AM EDT documented in this encounter Progress Notes * Thomas Arredondo DO - 07/11/2024 11:53 AM EDT Images from the original note were not included. History of Present Illness Andreia Pulido is a 78 year old female that presents for Follow Up (Neuropathy going up legs) Patient is a 78-year-old female here for medical follow-up. Patient has a history of hypertension, diabetes mellitus type 2, diabetic neuropathy, diabetic retinopathy with macular edema, dyslipidemia, lumbar degenerative disc disease and lumbar spinal stenosis. Patient feels generally well and is following a diet exercise program. Patient denies polyuria polydipsia or blurred vision. Patient denies hypoglycemia. Patient complains of bilateral foot toenail fungus. Patient complains of chronic low back pain, bilateral foot pain numbness and tingling with increased difficulty walking. Patient denies fatigue fever chills or sweats. Patient denies nasal congestion sore throat or earache. Patientdenies cough or sputum. Patient denies chest pain shortness breath palpitations or edema. Patient denies abdominal pain nausea vomiting diarrhea constipation. Patient denies urinary frequency dysuriaurgency or hematuria.. Patient denies headache dizziness or muscle weakness. Patient denies skin rash or lesions. Review systems otherwise negative Physical Exam Vitals: 07/11/24 1114 Temp: 36.9 C (98.5 F) Pulse: 76 SpO2: 97% BP: 128/64 BP Readings from Last 3 Encounters: 07/11/24 128/64 06/29/24 118/70 04/10/24 140/72 Wt Readings from Last 3 Encounters: 07/11/24 87 kg (191 lb 14.4 oz) 06/29/24 84.4 kg (186 lb 1.6 oz) 04/10/24 86.3 kg (190 lb 3.2 oz) BMI Readings from Last 3 Encounters: 07/11/24 32.94 kg/m 06/29/24 31.94 kg/m 04/10/24 31.55 kg/m BP 128/64 (BP Site: Left Arm, BP Position: Sitting) | Pulse 76 | Temp 36.9 C (98.5 F) | Wt 87 kg (191 lb 14.4 oz) | SpO2 97% | BMI 32.94 kg/m | BSA 1.98 m General: alert, healthy, and no distress [...] & oriented x 3 with fluent speech, motor strength 5/5 bilateral, decreased sensation to touch bilateral feet, antalgic gait, decreased DTR 0/4 bilateral Achilles Skin: skin color, texture, turgor are normal, onychomycotic toenails bilateral, bilateral foot callus, no skin ulcerations I have reviewed the following results: CMP, Lipid Panel, and Hemoglobin A1C Assessment and Plan Hypertension goal BP (blood pressure) < 140/90 Blood pressure goal. 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 associated with type 2 diabetes mellitus (HCC) Stable Follow with ophthalmology Intermediate stage nonexudative age-related macular degeneration of both eyes Stable Follow with ophthalmology Dyslipidemia, goal LDL below 70 Advise statin therapy, patient deferred Low-fat low-cholesterol high-fiber diet and exercise Onychomycosis Referral to podiatry Lumbar degenerative disc disease Stable Continue present medication Gabapentin 300 mg 1 tab three times daily Modified home therapeutic exercise - DURABLE MEDICAL EQUIPMENT, walking cane Spinal stenosis of lumbar region with neurogenic claudication Stable Continue present medication Gabapentin 300 mg 1 tab three times daily Modified home therapeutic exercise - DURABLE MEDICAL EQUIPMENT, walking cane Gait disturbance Modified home therapeutic exercise - DURABLE MEDICAL EQUIPMENT, walking cane Wrap-Up Time: I spent a total of 40-54 minutes (exact time 40 mins) on the date of service in preparation, delivery, and documentation of the care provided to Andreia Pulido excluding any time spent in the performance of separately billed services. * Rebecca Hurst LPN - 07/11/2024 11:21 AM EDT Patient has been verbally educated on the need or importance of Dexa Scan, Hepatitis C, and Immunizations: Pneumococcal, DTaP, Zoster and has declined topic(s). documented in this encounter Plan of Treatment Upcoming Encounters Date Type Department Care Team (Late st Contact Info) Description 10/09/2024 10:40 AM EST Office Visit Family Practice [address], [place] [address] [place] [address] Thomas Arredondo DO [address] [place] [address] Health Maintenance Due Date Last Done Comments Pneumococcal Vaccine: 65+ Years (1 of 2 - PCV) 1951 Hepatitis C Screening 1964 DTaP,Tdap,and Td Vaccines (1 - Tdap) 1965 Zoster Vaccines (1 of 2) 1965 DXA Scan 2011 Influenza Vaccine (FLU shot) (#1) 2024 COVID-19 Vaccine (#1) 07/30/2024 Postpo hortensia from 1951 (Unavailable) Albumin/Creatinine Ratio 01/07/20252 024, 07/27/2023, 09/25/2022 HbA1c [...] this encounter Medical Devices Implanted Type Area Accounts Payable Manager Device Identifier Shelf Expiration Date Model / Serial / Lot Lens Intraoc 25.5 - [id number] - [id number] Implanted:Qty: 1 on 01/30/2021 by Roberto Osorio MD at OR [facility] Left: Eye BAUSCH & LOMB 07/22/2025 [id number] / [id number] / [id number] Lens Intraoc 26.0 - [id number] - [id number] Implanted:Qty: 1 on 02/11/2021 by Roberto Osorio MD at OR [facility] Right: Eye BAUSCH & LOMB 06/21/2025 [id number] / [id number] / documented as of this encounter Visit Diagnoses Diagnosis Hypertension goal BP (blood pressure) < 140/90- Primary Unspecified essential hypertension Type 2 diabetes mellitus with diabetic polyneuropathy, without long-term current use of insulin (HCC) 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 associated with type 2 diabetes mellitus (HCC) Intermediate stage nonexudative age-related macular degeneration of both eyes Dyslipidemia, goal LDL below 70 Other and unspecified hyperlipidemia Onychomycosis Dermatophytosis of nail Lumbar degenerative disc disease Degeneration of lumbar or lumbosacral intervertebral disc Spinal stenosis of lumbar region with neurogenic claudication Spinal stenosis, lumbar region, with neurogenic claudication Gait disturbance Abnormality of gait documented in this encounter Care Teams Outsoles Channel Opener Relationship Specialty Start Date End Date Thomas Arredondo DO [address] [place] [address] PCP - General Family Medicine 10/01/23 documented as of this encounter
--- OUTSIDE RECORDS SUMMARY | 2025-01-10 02:16 | External Medical Summary | Summary of Care ---
Author Name Unknown Organization [facility] Address [address] [facility] [place] [address] Phone [phone] Care Team Providers Care Black Topper Name Role Phone Thomas Arredondo DO Primary Care Provider [phone] Reason for Visit * Reason Onset Date Comments Test Results 07/14/2024 Encounter Details Date Type Department Care Team (Late st Contact Info) Description 07/14/2024 Telephone Family Practice [address] [facility] [place] [address] [place] [address] Thomas Arredondo DO [address] [place] [address] Test Results Allergies No known active allergiesdocumented as of this encounter (statuses as of 07/15/2024) Medications Medication Sig Dispensed Refills Start Date End Date Status glipiZIDE ER 10 MG Oral Tablet Extended Release 24 Hour (Glucotrol XL) TAKE ONE TABLET BY MOUTH TWO TIMES A DAY WITH MEALS 180 Tablet 3 04/07/2023 Active metFORMIN HCl 1000 MG Oral Tablet (Glucophage) TAKE ONE TABLET BY MOUTH TWO TIMES A DAY 180 Tablet 3 04/07/2023 Active Glucose Blood In Vitro Strip use to test blood sugar as needed up to three times a day 100 Strip 07/27/2023 Active OneTouch Ultra In Vitro Strip (Glucose Blood) test three times a day 300 Strip 08/02/2023 Active PreserVision AREDS 2+Multi Vit Oral [...] and 1 Capsule before bedtime. 07/11/2024 Active Hospital, Clinic, or Other Facility Administered [...] as of this encounter (statuses as of 07/15/2024) Active Problems Problem Noted Date Diagnosed Date [...] as of this encounter (statuses as of 07/15/2024) Social History Tobacco Use Types Packs/Day Years [...] money to buy more. Never true 07/11/20 Within the past 12 months, t he [...] Telephone Encounter - Thomas Arredondo DO - 07/14/2024 5:58 PM EDT Lab studies shows hemoglobin A1c level 7.7 much improved from prior study. Remainder of lab studiesare normal. Advise continue present medication, diabetic diet and exercise. documented in this encounter Plan of Treatment Upcoming Encounters Date Type Department Care Team (Late st Contact Info) Description 10/09/2024 10:40 AM EST Office Visit Family Practice [address], [place] [address] [place] [address] Thomas Arredondo DO [address] [place] [id number] Health Maintenance Due Date Last Done Comments Pneumococcal Vaccine: 65+ Years (1 of 2 - PCV) 1951 Hepatitis C Screening 1964 DTaP,Tdap,and Td Vaccines (1 - Tdap) 1965 Zoster Vaccines (1 of 2) 1965 DXA Scan 2011 Influenza Vaccine (FLU shot) (#1) 2024 COVID-19 Vaccine (#1) 07/30/2024 Postpo hortensia from 1951 (Unavailable) Albumin/Creatinine Ratio 01/07/2025 024, 07/27/2023, 09/25/2022 HbA1c [...] this encounter Medical Devices Implanted Type Area Tariff Compiler Device Identifier Shelf Expiration Date Model / Serial / Lot Lens Intraoc 25.5 - [id number] - [id number] Implanted:Qty: 1 on 01/30/2021 by Roberto Osorio MD at OR [facility] Left: Eye BAUSCH & LOMB 07/22/2025 [id number] / [id number] / [id number] Lens Intraoc 26.0 - [id number] - [id number] Implanted:Qty: 1 on 02/11/2021 by Roberto Osorio MD at OR [facility] Right: Eye BAUSCH & LOMB 06/21/2025 [id number] / [id number] / documented as of this encounter Care Teams Black Topper Relationship Specialty Start Date End Date Thomas Arredondo DO [address] [place] [address] PCP - General Family Medicine 10/01/23 documented as of this encounter
--- OUTSIDE RECORDS SUMMARY | 2025-01-10 02:16 | External Medical Summary | Summary of Care ---
Author Name Unknown Organization [facility] Address [address] [place] [address] Phone [phone] Care Team Providers Care Motorcycle Delivery Driver Name Role Phone Thomas Arredondo DO Primary Care Provider [phone] Encounter Details Date Type Department Care Team (Late st Contact Info) Description 09/29/2024 Documentation HEALTH & WELLNESS Torrey Joya, Health Baggageman Allergies No known active allergiesdocumented as of this encounter (statuses as of 09/29/2024) Medications OneTouch Ultra In Vitro Strip (Glucose [...] Tablet 4 07/26/2024 8:28 AM EDT 4 Active NATURAL SUPPLEMENT Take 6 Tablets [...] 3 09/11/2024 3:30 PM EDT 4 Active Hospital, Clinic, or Other Facility [...] as of this encounter (statuses as of 09/29/2024) Active Problems Problem Noted Date Diagnosed Date [...] as of this encounter (statuses as of 09/29/2024) Social History Tobacco Use Types Packs/Day Years [...] as of this encounter Progress Notes * Torrey Joya, Health Baggageman - 09/29/2024 1:14 PM EST Visit Type: Return Wellness Return Visit Type: Group exercisebalance and strength class 45 min documented in this encounter Plan of Treatment Upcoming Encounters Date Type Department Care Team (Late st Contact Info) Description 10/09/2024 10:40 AM EST Office Visit Family Practice [address] [place] [phone] Thomas Arredondo DO [address] [place] [address] 2024 3:15 PM EST Office Visit Ophthalmology, [facility] [address] [place] [address] Kennedy Barger, DO [address] [place] [address] Health Maintenance Due Date Last Done Comments [...] this encounter Medical Devices Implanted Type Area Rail Car Welder Device Identifier Shelf Expiration Date Model / Serial / Lot Lens Intraoc 25.5 - [id number] - [id number] Implanted:Qty: 1 on 01/30/2021 by Roberto Osorio MD at [facility] Left: Eye BAUSCH & LOMB 07/22/2025 [id number] / [id number] / [id number] Lens Intraoc 26.0 - [id number] - [id number] Implanted:Qty: 1 on 02/11/2021 by Roberto Osorio MD at [facility] Right: Eye BAUSCH & LOMB 06/21/2025 [id number] / [id number] / documented as of this encounter Care Teams Motorcycle Delivery Driver Relationship Specialty Start Date End Date Thomas Arredondo DO [address] [place] [address] PCP - General Family Medicine 10/01/23 documented as of this encounter
--- OUTSIDE RECORDS SUMMARY | 2025-01-10 02:16 | External Medical Summary | Summary of Care ---
Author Name Unknown Organization [facility] Address [address] [place] [facility] [place] [address] Phone [phone] Care Team Providers Care Automatic Brine Mixer Operator Name Role Phone Thomas Arredondo DO Primary Care Provider [phone] Reason for Visit * Reason Comments Follow Up Neuropathy going up legs Encounter Details Date Type Department Care Team (Latest Contact Info) Description 07/11/2024 11:00 AM EDT Office Visit Family Practice [address] [place] [address] [address] [place] [address] Thomas Arredondo DO [address] [place] [address] Hypertension goal BP (blood [...] as of this encounter (statuses as of 07/17/2024) Medications Medication Sig Dispensed Refills Start Date [...] by mouth in the morning. 07/11/20 24 Discontinued(Press-sense List Clean Up) Gabapentin 300 MG Oral [...] as of this encounter (statuses as of 07/17/2024) Active Problems Problem Noted Date Diagnosed Date [...] as of this encounter (statuses as of 07/17/2024) Social History Tobacco Use Types Packs/Day Years [...] EST Office Visit Family Practice [address], [place] [address] [place] [address] Thomas Arredondo DO [address] [place] [address] Health Maintenance Due Date [...] this encounter Medical Devices Implanted Type Area Installation Coordinator Device Identifier Shelf Expiration Date Model / Serial / Lot Lens Intraoc 25.5 - [id number] - [id number] Implanted:Qty: 1 on 01/30/2021 by Roberto Osorio MD at OR [facility] Left: Eye BAUSCH & LOMB 07/22/2025 [id number] / [id number] / [id number] Lens Intraoc 26.0 - [id number] - [id number] Implanted:Qty: 1 on 02/11/2021 by Roberto Osorio MD at OR [facility] Right: Eye BAUSCH & LOMB 06/21/2025 [id number] / [id number] / documented as of this encounter Visit [...] gait documented in this encounter Care Teams Automatic Brine Mixer Operator Relationship Specialty Start Date End Date Thomas Arredondo DO [address] [place] [address] PCP - General Family Medicine 10/01/23 documented as of this encounter
--- OUTSIDE RECORDS SUMMARY | 2025-01-10 02:16 | External Medical Summary | Summary of Care ---
Author Name Unknown Organization [facility] Address [address] [place] [address] Phone [phone] Care Team Providers Care Cash Register Balancer Name Role Phone Thomas Arredondo DO Primary Care Provider [phone] Encounter Details Date Type Department Care Team (Late st Contact Info) Description 09/25/2024 Documentation HEALTH & WELLNESS Torrey Joya, Health Oracle Business Analyst Allergies No known active allergiesdocumented as of this encounter (statuses as of 09/26/2024) Medications Medication Sig Dispensed Refills Start Date End Date Status OneTouch Ultra In Vitro Strip (Glucose Blood) test three times a day 300 Strip 11 08/02/2023 Active PreserVision AREDS 2+Multi Vit Oral Capsule Take by mouth 2 times a day. Active Lisinopril-hydroCHL OROthiazide 20-25 MG Oral Tablet Take 1 Tablet by mouth in the morning. 07/08/2022 Active Empagliflozin 10 MG Oral Tablet (Jardiance)Indicati ons:Type 2 diabetes mellitus with hyperglycemia, without long-term [...] 08/25/2024 Active Gabapentin 300 MG Oral Capsule (Neurontin)Indicati ons:Type 2 diabetes mellitus with diabetic polyneuropathy, without long-term current use of insulin (HCC),Lumbar degenerative disc disease,Spinal stenosis of lumbar region with neurogenic claudication Take 1 Capsule by mouth in the morning and 1 Capsule at noon and 1 Capsule before bedtime. 280 Capsule 3 08/28/2024 Active Hospital, Clinic, or Other Facility Administered [...] as of this encounter (statuses as of 09/26/2024) Active Problems Problem Noted Date Diagnosed Date [...] as of this encounter (statuses as of 09/26/2024) Social History Tobacco Use Types Packs/Day Years [...] encounter Progress Notes * Torrey Joya, Health Oracle Business Analyst - 09/26/2024 10:01 AM EST Visit Type: Return Wellness Return Visit Type: Group exercise strength and balance class 30 min documented in this encounter Plan of Treatment Upcoming Encounters Date Type Department Care Team (Late st Contact Info) Description 10/09/2024 10:40 AM EST Office Visit Family Practice [address], [place] [address] [place] [address] Thomas Arredondo DO [address] [place] [address] 2024 3:15 PM EST Office Visit Ophthalmology, [facility] [address] [place] [address] Kennedy Barger, [address] [place] [address] Health Maintenance Due Date Last Done Comments COVID-19 Vaccine (#1) 1950 Pneumococcal Vaccine: 65+ Years (1 of 2 - PCV) 1951 Hepatitis C Screening 1964 DTap/Tdap Vaccines (1 - Tdap) 1965 Zoster Vaccines (1 of 2) 1965 DXA Scan 2011 Influenza Vaccine (FLU shot) (#1) 2024 Albumin/Creatinine Ratio 01/07/2025 024, 07/27/2023, 09/25/2022 HbA1c 01/11/2025 07/11/2024, 050 07/2024, 01/03/2024, Additional history exists Diabetic Eye [...] this encounter Medical Devices Implanted Type Area Overedge Sewer Device Identifier Shelf Expiration Date Model / Serial / Lot Lens Intraoc 25.5 - [id number] - [id number] Implanted:Qty: 1 on 01/30/2021 by Roberto Osorio MD at OR [facility] Left: Eye BAUSCH & LOMB 07/22/2025 [id number] / [id number] / [id number] Lens Intraoc 26.0 - [id number] - [id number] Implanted:Qty: 1 on 02/11/2021 by Roberto Osorio MD at OR [facility] Right: Eye BAUSCH & LOMB 06/21/2025 [id number] / [id number] / documented as of this encounter Care Teams Cash Register Balancer Relationship Specialty Start Date End Date Thomas Arredondo DO [address] [place] [address] PCP - General Family Medicine 10/01/23 documented as of this encounter
--- OUTSIDE RECORDS SUMMARY | 2025-01-10 02:16 | External Medical Summary | Summary of Care ---
Author Name Unknown Organization [facility] Address [address] [place] [address] Phone [phone] Care Team Providers Care Power Superintendent Name Role Phone Thomas Arredondo DO Primary Care Provider [phone] Reason for Visit * Reason Comments Outpatient Testing Encounter Details Date Type Department Care Team (Late st Contact Info) Description 09/25/2024 1:40 PM EST Laboratory Laboratory, [place] [address] [place] [address] [place] [address] [place] [id number] Arrived Allergies No known active allergiesdocumented as of this encounter (statuses as of 09/25/2024) Medications Medication Sig Dispensed Refills Start Date [...] as of this encounter (statuses as of 09/25/2024) Active Problems Problem Noted Date Diagnosed Date [...] as of this encounter (statuses as of 09/25/2024) Social History Tobacco Use Types Packs/Day Years [...] on file documented as of this encounter Plan of Treatment Upcoming Encounters Date Type Department Care Team (Late st Contact Info) Description 10/09/2024 10:40 AM EST Office Visit Family Practice [address] [place] [address] [place] [address] Thomas Arredondo DO [address] [place] [address] 2024 3:15 PM EST Office Visit Ophthalmology, [facility] [address] [place] [address] Kennedy Barger, DO [address] [place] [address] Health Maintenance Due Date Last Done Comments [...] this encounter Medical Devices Implanted Type Area Steward/Stewardess Club Car Device Identifier Shelf Expiration Date Model / Serial / Lot Lens Intraoc 25.5 - [id number] - [id number] Implanted:Qty: 1 on 01/30/2021 by Roberto Osorio MD at OR [facility] Left: Eye [employer]OM[employer] 07/22/2025 [id number] / [id number] / [id number] Lens Intraoc 26.0 - [id number] - [id number] Implanted:Qty: 1 on 02/11/2021 by Roberto Osorio MD at OR [facility] Right: Eye BAUSCH [employer] LOMB 06/21/2025 [id number] / [id number] / documented as of this encounter Care Teams Power Superintendent Relationship Specialty Start Date End Date Thomas Arredondo DO [address] [place] [address] PCP - General Family Medicine 10/01/23 documented as of this encounter
--- OUTSIDE RECORDS SUMMARY | 2025-01-10 02:16 | External Medical Summary | Summary of Care ---
Author Name Unknown Organization [facility] Address [address] [facility] [address] Phone [phone] Care Team Providers Care Vegetable Inspector Name Role Phone Thomas Arredondo DO Primary Care Provider [phone] Reason for Visit * Reason Onset Date Comments Medication Refill 08/25/2024 Encounter Details Date Type Department Care Team (Late st Contact Info) Description 08/25/2024 Refill Family Practice [facility], [place] [address] [place] [address] Thomas Arredondo DO [address] [place] [address] Allergies No known active allergiesdocumented as of this encounter (statuses as of 08/25/2024) Medications Medication Sig Dispensed Refills Start Date [...] natural vitamins-B12, D, and other vitamins.. Active Gabapentin 300 MG Oral Capsule (Neurontin)Indicat [...] restless legs 200 Tablet 3 08/25/2024 Active rOPINIRole HCl 0.25 MG Oral Tablet (Requip) Take 2 tablets by mouth at bedtime for restless legs 180 Tablet 3 06/29/2024 4 Discontinue d(Refill) Hospital, Clinic, or Other [...] as of this encounter (statuses as of 08/25/2024) Active Problems Problem Noted Date Diagnosed Date [...] as of this encounter (statuses as of 08/25/2024) Social History Tobacco Use Types Packs/Day Years [...] Telephone Encounter - Thomas Arredondo DO - 08/25/2024 4:11 PM EDTSigned Prescriptions: Disp Refills rOPINIRole HCl 0.25 MG Oral Tablet (Requip)200 Ta*3 Sig: Take 2 tablets by mouth at bedtime for restless legs Authorizing Provider: THOMAS ARREDONDO * Telephone Encounter - Ifeoma Finn LPN - 08/25/2024 4:11 PM EDTPending Prescriptions: Disp Refills rOPINIRole HCl 0.25 MG Oral Tablet (Requip)200 Ta*3 Sig: Take 2 tablets by mouth at bedtime for restless legs * Telephone Encounter - Ifeoma Finn LPN - 08/25/2024 4:10 PM EDT Did you pend patient's preferred pharmacy and medication before forwarding?yes Pharmacy: [facility] Pending Prescriptions: Disp Refills rOPINIRole HCl 0.25 MG Oral Tablet (Requi*200 Ta*3 Sig: Take 2 tablets by mouth at bedtime for restless legs Last Visit: 07/11/2024 (in office), Visit date not found (telemedicine) Next Visit: 10/09/2024 If no future appointments scheduled, and last appointment is greater than a year ago, please schedule patient for a follow-up appointment Last date the medication was ordered: 06/29/24 Is this request for a controlled substance?No [...] Telephone Encounter - Felipa Ricardo OSA - 08/25/2024 3:26 PM EDT Did you pend patient's preferred pharmacy and medication before forwarding? Pharmacy: [facility] Pending Prescriptions: Disp Refills rOPINIRole HCl 0.25 MG Oral Tablet (Requi*180 Ta*3 Sig: Take 2 tablets by mouth at bedtime for restless legs Last Visit: 07/11/2024 (in office), Visit date [...] 10/09/2024 10:40 AM EST Office Visit Family [facility] [address] [place] [address] Thomas Arredondo DO [address] [place] [address] 2024 3:15 PM EST Office Visit Ophthalmology, [facility] [address] [place] [address] Kennedy Barger DO [address] [place] [address] Health Maintenance Due Date Last Done Comments [...] this encounter Medical Devices Implanted Type [place] Library Director Device Identifier Shelf Expiration Date Model / Serial / Lot Lens Intraoc 25.5 - [id number] - [id number] Implanted:Qty: 1 on 01/30/2021 by Roberto Osorio MD at OR [facility] Left: Eye BA[employer]CH [employer] LOMB 07/22/2025 [id number] / [id number] / [id number] Lens Intraoc 26.0 - [id number] - [id number] Implanted:Qty: 1 on 02/11/2021 by Roberto Osorio MD at OR [facility] Right: Eye BAUSCH [employer] LOMB 06/21/2025 [id number] / [id number] / documented as of this encounter Care Teams Vegetable Inspector Relationship Specialty Start Date End Date Thomas Arredondo DO [address] [place] [address] PCP - General Family Medicine 10/01/23 documented as of this encounter
--- OUTSIDE RECORDS SUMMARY | 2025-01-10 02:16 | External Medical Summary | Summary of Care ---
Author Name Unknown Organization [facility] Address [address] [facility] [place] [address] Phone [phone] Care Team Providers Care Water Purifier Name Role Phone Thomas Arredondo DO Primary Care Provider [phone] Reason for Visit * Reason Onset Date Comments Test Results 07/14/2024 Encounter Details Date Type Department Care Team (Late st Contact Info) Description 07/14/2024 Telephone Family Practice 65 [facility], [place] [address] [place] [address] Thomas Arredondo DO [address] [place] [address] Test Results Allergies No [...] three times a day 100 Strip 11 07/27/2023 Active OneTouch Ultra In Vitro Strip [...] encounter Miscellaneous Notes * Telephone Encounter - Rebecca Hurst LPN - 07/17/2024 11:15 AM EDT Pt aware and verbalized understanding. * Telephone Encounter - Thomas Arredondo DO [...] Visit Family Practice [address] [place] [place] [address] Thomas Arredondo DO [address] [place] [address] Health Maintenance Due Date Last Done Comments [...] this encounter Medical Devices Implanted Type Area Reversing Mill Roller Device Identifier Shelf Expiration Date Model / Serial / Lot Lens Intraoc 25.5 - [id number] - [id number] Implanted:Qty: 1 on 01/30/2021 by Roberto Osorio MD at OR [facility] Left: Eye BAUSCH [employer] LOMB 07/22/2025 [id number] / [id number] / [id number] Lens Intraoc 26.0 - [id number] - [id number] Implanted:Qty: 1 on 02/11/2021 by Roberto Osorio MD at [facility] Right: Eye BAUSCH [employer] LOMB 06/21/2025 [id number] / [id number] / documented as of this encounter Care Teams Water Purifier Relationship Specialty Start Date End Date Thomas Arredondo DO [address] [place] [address] PCP - General Family Medicine 10/01/23 documented as of this encounter
[2025-01-10] MEDS: ACETAMINOPHEN 325 MG TAB PO PRN (03:12)
[2025-01-10 07:06] LABS: BUN Creatinine Ratio 18.1 (10-20); Calcium 8.7 mg/dl (8.6-10.3); Chol HDL Ratio 3.6 (0-5); Magnesium 1.8 mg/dl (1.7-2.4); Potassium 3.9 mmol/L (3.5-5.1)
[2025-01-10 07:22] LABS: Hematocrit (blood only) 36.7 % (37.0-47.0); Hemoglobin 12.6 g/dl (12.0-16.0); Mean Corpuscular Hemoglobin 28.8 pg (25.0-34.0); Mean Corpuscular Hgb Conc 34.3 g/dL (32.0-36.0); Mean Platelet Volume 11.6 fL (9.4-12.4); Platelet Count 96 K/uL (130-400); Platelet Estimate Decreased (Normal); RDW Coefficient of Variation 13.6 % (11.5-14.5); RDW Standard Deviation 41.8 fL (36.4-46.3); Red Blood Count 4.37 M/uL (4.20-5.40); White Blood Count 3.48 K/ul (4.8-10.8)
--- NOTE | 2025-01-10 07:35 | Hospitalist Progress Note ---
Date of Service January 10, 2025 Assessment & Plan (1) UTI (urinary tract infection): Plan: presented with acute confusion,+UA w/ lactic 3.0 on admission and temp to 38.3C with leukopenia with tachycardia -suspect sepsis 2nd to urinary source with increased urination/burning/frequency reported. Procal 0.05 CT head negative for acute CVA. s/p 2L NSS bolus in ER, lactic 3.0--> 2.1 on repeat. Na 131--> 134 Mentation MUCH IMPROVED -Decreased urinary frequency/burning. Improvement in PO intake/encouraged, no further IVF Ceftriaxone IV continued Temp 38.9C overnight, Tylenol provided. Monitor fever curve Follow up urine/blood cx (2) Sepsis: Plan: IMPROVING, continue abx as outlined, f/u cxs (3) Metabolic encephalopathy: Plan: resolved w/ tx as above but ?if related to combination of requip/gabapentin 300mg TID as taking at home, also w/ elevated BSGs/hyperglycemic on admission (A1c checekd and ELEVATED to 10.5 and does report not checking BSGs regularly at home) had prior held home gabapentin (was taking 300mg TID, max 900mg/daily w/ Cr Cl 50-70s), requip 0.5mg HS Planned to resume gabapentin 100mg TID but will hold for now. requip remains on hold (4) Diabetes mellitus: Plan: Last A1c 8.6 last march, Prior on Jardiance but stopped 2nd to cost but was improved <10 compared to prior. Currently on glipizide/metformin at baseline but does report not checking her BSGs regularly Glu back on chemistries and elevated to 400s on admission, 2L IVF as above, possible early HSS? No anion gap noted. BUN/Cr 16/1.02 A1c WORSE 10.5, again suspect 2nd to diet/compliance DM diet ordered, BSG AC/HS and will order glargine 10u x 1 now, pharmacy consult placed for glycemic and DM educator consult placed Did discuss w/ son DJ and patient does not check BSGs at home. ?consideration for jardiance however is in w/ UTI and if frequent would avoid Rec recent PCP notes (appears follows w/ Dr Arredondo from [facility] recently) Monitor BSGs/adjustment as needed (5) Benign essential hypertension: Plan: On lisinopril-HCTZ 20-12.5mg daily, BP elevated 152/89 on admission and hadn't taken medications and lisinopril 20mg x 1 ordered BP 146/78 with stable renal function and home lisinopril-HCTZ has been resumed for today PO hydration encouraged, monitor to adjust as needed (6) HLD (hyperlipidemia): Plan: Hx such, not on meds. TRG 122, Chol 154, LDL 87. F/u PCP outpatient Plan DVT proph: Lovenox SQ once daily, platelets stable at 96 without bleeding reported and will monitor Dispo: continued inpatient stay on IV abx, follow up cultures. Therapy evals pending/CM to follow as lives w/ son to see about rehab DM educator/pharmacy consulted for glycemic assistance Will plan to downgrade off telemetry this evening as has been NSR. No CP. Minimal elevation in troponin suspected 2nd to demand from infection/de hydration/sepsis on admission Discussed w/ daughter Maggie, from [facility],. Was planning to sweet pickle maker/stay with patient tomorrow but inquired about rehab prior to return home. CM notified to f/u Admission and Anticipated Discharge Date Admission Date: January 09, 2025 Supervising Physician Co-Signing Physician Notes The patient was not seen by me. The chart was reviewed. Case discussed with R[place] Fox. Agree with assessment and plan Subjective EVal this morning, sitting up in bed. Appears much improved, alert to person/knows in [facility], year 2024 today. Decreased burning with urination/frequency. Urine/blood cx pending as well as therapy evals. No CP/SOB. Did have fever overnight/improved with tylenol, did not feel rigors/fever however. +BM reported, good appetite. Questions/concerns addressed at this time. Confirms lives with son, will call with update and hopeful dc in AM -- called/updated. Also updated daughter Maggie at bedside this evening. Physical Exam Physical Exam: General: 79yo female sitting up in bed, NAD, MUCH improved from yesterday HEENT: head atraumatic, normocephalic, mm improved, trachea midline Resp: even/unlabored, slightly diminished in the bases but no wheezing/rales, on ROOM AIR CV: RRR, rates improved since IVF, no significant m/r/g, trace pedal edema, pulses present GI: +BS, soft/slight distension (decreased since +BM), nontender no winkler MSK/Neuro: moves all extremities, no slurred speech/facial droop, able to follow commands as asked but mentation not at baseline Psych: alert to person, now to month/knows in [facility], year 2024. cooperative/pleasant with exam Results & Data Results & Data Vital Signs (Past 12 Hours) Vital Signs Temp Pulse Pulse Resp BP BP Pulse Ox 01/10/25 04:00 37.9 C H 01/10/25 02:57 38.9 C H 100 H 18 144/76 H 94 01/09/25 22:32 37.3 C 95 H 18 162/81 H 98 01/09/25 22:21 101 H 01/09/25 21:12 37.3 C 93 H 18 151/79 H 96 01/09/25 21:06 96 H 01/09/25 20:32 36.9 C 01/09/25 20:31 96 H 16 138/83 94 01/09/25 20:02 97 H O2 Del Method 01/10/25 04:00 01/10/25 02:57 Room Air 01/09/25 22:32 Room Air 01/09/25 22:21 01/09/25 21:12 Room Air 01/09/25 21:06 01/09/25 20:32 01/09/25 20:31 Room Air 01/09/25 20:02 Laboratory Results Chest X-Ray 01/09/25 16:41 INDICATION: Chest pain. TECHNIQUE: Frontal radiograph of the chest. COMPARISON: None. FINDINGS: Elevation of the right hemidiaphragm. Cardiomegaly. Mild pulmonary vascular congestion. No infiltrate, pleural effusion or pneumothorax. No acute osseous abnormality evident. IMPRESSION: Mild pulmonary vascular congestion. Electronically signed by Saul Martino 01-09-2025 6:[address] 01/09/25 16:42 INDICATION: Altered mental status. COMPARISON: No relevant priors available TECHNIQUE: Axial CT images of the head were obtained without IV contrast. Coronal and sagittal reformations were reviewed. FINDINGS: Goodwin-white differentiation is relatively preserved. No mass, mass effect or midline shift. Mild chronic ischemic white matter changes. No evidence of acute large territorial infarction or acute intracranial hemorrhage. Ventricles appear normal in size. Basal cisterns are patent. No depressed calvarial fracture. Small amount of fluid in the right maxillary sinus. IMPRESSION: 1. No acute intracranial process. 2. Small amount of fluid in the right maxillary sinus. Correlate for sinusitis. Electronically signed by Saul Martino 01-09-2025 5:31 PM PG Care Time/CCT Total # of Minutes Spent Total Time Spent with Patient: Total time spent is greater than 50% in coordination of care (as documented) at patient's floor/unit and/or counseling patient: Coding Level of Care Code 86031 SUB INP/OBS CARE 3/50MIN Diagnoses UTI (urinary tract infection) N39.0 Sepsis A41.9 Metabolic encephalopathy G93.41 Diabetes mellitus E11.9 Benign essential hypertension I10 HLD (hyperlipidemia) E78.5
[2025-01-10] MEDS: LISINOPRIL/HCTZ 20/12.5MG 1 TAB TAB PO SCH (08:39)
--- NOTE | 2025-01-10 11:21 | Electrocardiogram Report ---
Test Reason : Blood Pressure : */* mmHG Vent. Rate : 110 BPM Atrial Rate : 110 BPM P-R Int : 172 ms QRS Dur : 68 ms QT Int : 334 ms P-R-T Axes : 54 22 62 degrees QTcB Int : 452 ms Sinus tachycardia Possible Left atrial enlargement Low voltage QRS Abnormal ECG No previous ECGs available Confirmed by Kennedy Yeager ([id number]) on 01/10/2025 11:21:04 AM Referred By: REFERRED SELF Confirmed By: Kennedy Yeager
[2025-01-10 11:34] LABS: Estimated Average Glucose 255 mg/dl; Hemoglobin A1C 10.5 % (4.5-5.6)
[2025-01-10] MEDS ORDERED: PHARMACY GLYCEMIC MGMT CONSULT PRN (13:23)
--- NOTE | 2025-01-10 13:55 | Pharmacy Report ---
Pharmacy Glycemic Short Note 2 - Date of Service January 10, 2025 - Glycemic Short BSG Results (Last 24 hours): 01/09/25 01/09/25 01/10/25 16:32 21:04 05:56 Glucose 421 H* 207 H POC Glucose 283 H 01/10/25 01/10/25 08:01 12:17 Glucose POC Glucose 196 H 235 H OUTPATIENT ANTIDIABETIC REGIMEN: * glipizide 10 mg bid, metformin 1 gm bid ASSESSMENT: * 79 year old admitted with UTI - Pharmacy consulted for glycemic management. Patient is type 2 diabetic managed on oral agents outpatient. A1c ~10%. BSGs >200s today. Fasting BSG elevated, will start Lantus 0.2 units/kg daily. PLAN FOR INPATIENT GLYCEMIC CONTROL: * Hold outpatient oral diabetes medications * Basal insulin * Lantus 15 units once daily * Bolus insulin * NovoLog per scale ACHS or Q6hrs while NPO * Goal Range: Low 120 mg/dL - High 160 mg/dL * Correction Factor: 30 mg/dL/unit * Nutritional / Prandial insulin per carb ratio of 1 unit per 10 grams CHO consumed
[2025-01-10] MEDS: LANTUS PER UNIT CHARGE SQ SCH (14:14)
[2025-01-10] MEDS: SODIUM CHLORIDE 0.9% 1,000 ML IV SCH (16:21)
[2025-01-10] MEDS: cefTRIAXone SODIUM 2,000 MG/50 ML BAG IV SCH (17:48)
[2025-01-10] MEDS: GABAPENTIN 100 MG CAP PO SCH (20:14)
[2025-01-11 06:19] LABS: BUN Creatinine Ratio 21.8 (10-20); Calcium 8.3 mg/dl (8.6-10.3); Creatinine Clr Calc Pharmacy 62.8 ml/min; Magnesium 1.7 mg/dl (1.7-2.4); Potassium 3.7 mmol/L (3.5-5.1)
[2025-01-11] MEDS: NYSTATIN POWDER 15GM BTL EXT SCH (07:52)
[2025-01-11] MEDS: lisinopril 20 MG TAB PO SCH (07:52)
--- NOTE | 2025-01-11 07:55 | Hospitalist Progress Note ---
Date of Service January 11, 2025 Assessment & Plan (1) Sepsis: (2) UTI (urinary tract infection): (3) SVT (supraventricular tachycardia): (4) Diabetes mellitus: (5) Metabolic encephalopathy: (6) Benign essential hypertension: (7) HLD (hyperlipidemia): Plan 79yo female presented with acute confusion,+UA on admission w/ urinary frequency/burning with lactic 3.0 on admission, leukopenia and procal 0.06. Temp 38.3C with concerns for sepsis 2nd to urinary source. CT head negative for acute CVA. Provided with 2L NSS bolus in ER, lactic 3.0--> 2.1 on repeat. Na 131--> 134 (normal w/ Glu). Sepsis, Metabolic Encephalopathy Urinary Tract Infection Mentation MUCH IMPROVED 01/10-01/11. Decreased urinary frequency/burning reported Ceftriaxone IV continued -Urine cx ecoli, resistance to ampicillin/intermediate to cefazolin but sensitive to CTX and will continue Last fever 01/10, monitor blood cxs. If neg x 48hrs in AM can transition to PO abx to complete course BP low this morning/repeat BP to be obtained improved 130/72. - HCTZ placed on HOLD, lisinopril 20mg PO daily only ordered. ?not taking this at home, daughter unable to find her pills - Was given 1L NSS overnight 01/10, improvement in PO intake. Encouraged continued PO intake - Placed AM lisinopril on hold and will monitor OFF both for now, possible resumption lisinopril at lower dose in AM Monitor labs/exam in AM, continued PT/OT while inpatient, OOB/ambulation encouraged Hyperglycemic/DM II A1c 10.5, not at goal. Also suspect her DM contributing to mentation issues On metformin/glipizide at baseline, prior jardiance but $$ BSGs much improved inpatient and pharmacy on consult/DM educator and will see about resumption Jardiance however w/ UTI likely not best option. Can consider increased oral regimen vs once daily insulin but suspect not ideal/not safe for patient in current situation Needs encouragement for continued DM diet/checking BSGs at home as does endorse does NOT check frequently at home. DM educator consulted while inpatient Home gabapentin remains on HOLD, topical Voltaren gel to legs ordered for RLS/neuropathy pain. Had not had significant complaints at this time and will continue on hold SVT overnight for ~1hr, patient apparently unaware of such/no medications provided. notable Mag 1.7 yesterday and 1gm IV ordered to keep replete but again 1.7 and already ordered 1gm empirically this morning as reported SVT overnight for ~1hr, in NSR this morning. ECHO ordered (no CP/SOB reported), f/u CXR given pulm congestion on admission but no hypoxia (biofire was negative on admission). Nursing notified to provide incentive spirometer/encourage use Minimal elevation in troponin suspected 2nd to demand from infection/dehydration/sepsis on admission however will f/u ECHO (No CP reported) Continue to monitor on telemetry, mag replacement as needed w/ repeat testing. Additional 2gm mag for today.?start PO HTN On lisinopril-HCTZ 20-12.5mg daily HCTZ has been stopped, lisinopril resumed but BP lower side this morning and placed on hold for now/will monitor. ?need resumption at lower dose. HCTZ on hold for now, monitor repeat CXR/dose of lasix if needed but no hypoxia/significant edema on exam. ECHO as above given SVT overnight DVT proph: Lovenox SQ once daily, platelets stable at 96 without bleeding reported and will monitor CBC in AM Dispo: Continued inpatient stay, transition to PO abx in AM if bcx negative. Updated daughter Maggie at bedside 01/10, 01/11. From [place]. CM to f/u about possible rehab/SNF prior to returning home given concerns for safety/inability to care for herself at this time. Will need f/u PCP re:DM management, DM educator consulted while inpatient Admission and Anticipated Discharge Date Admission Date: January 09, 2025 Supervising Physician Co-Signing Physician Notes The patient was not seen by me. The chart was reviewed. Case discussed with RUSSELL Fox. Agree with assessment and plan Subjective EVal this morning, family in room. +BM yesterday, daughter inquiring about cause for UTI. Could be from DM/ketones/sugar in urine, possible recent Jardiance use. She reports couldn't find moms pills at home. Does need rehab, better BSG control. Daughter reports not having great finances and inquires about alternative tx for DM. Will discuss/other oral agents available. Less burning/frequency with urination. Did have episode SVT overnight for ~1 hr, echo for completeness but no CP/SOB. Occasional nonproductive cough, no significant pitting edema Needing rehab, CM notified as daughter reports she didn't hear from anyone yesterday. Questions/concerns addressed at this time. Physical Exam 2 Physical Exam: General: 79yo female laying in bed, daughter/family in room, alert to person/year but not month, pleasant/cooperative (witnessed ambulating with walker with daughter later in morning), reports feeling better/less urinary sx HEENT: head atraumatic, mm improved, trachea midline Resp: even/unlabored, slightly diminished (RN to provide IS), faint exp wheezing but no rales, on ROOM AIR, occ non-productive cough CV: regular (episode SVT overnight), faint systolic murmur, trace pedal edema but calves nontender, pulses present GI: +BS throughout, nontender no winkler MSK/Neuro: generalized weakness but nonfocal, moves all extremities, no facial droop Psych: alert to person/place/year, not month, cooperative Results & Data Results & Data Vital Signs (Past 12 Hours) Vital Signs Temp Pulse Pulse Resp BP Pulse Ox O2 Del Method 01/11/25 05:30 67 01/11/25 05:20 36.4 C L 72 18 97/62 L 98 Room Air 01/11/25 02:04 37 C 104 H 16 154/77 H 96 Room Air 01/11/25 00:26 106 H 01/10/25 23:17 37.4 C 102 H 16 136/76 95 Room Air 01/10/25 20:05 37.5 C 100 H 16 112/62 94 Room Air Laboratory Results 01/10/25 05:56 01/11/25 05:23 Mag 1.7 PG Care Time/CCT Total # of Minutes Spent Total Time Spent with Patient: Total time spent is greater than 50% in coordination of care (as documented) at patient's floor/unit and/or counseling patient: Coding Level of Care Code 51981 SUB INP/OBS CARE 3/50MIN Diagnoses Sepsis A41.9 UTI (urinary tract infection) N39.0 SVT (supraventricular tachycardia) I47.10 Diabetes mellitus E11.9 Metabolic encephalopathy G93.41 Benign essential hypertension I10 HLD (hyperlipidemia) E78.5
[2025-01-11] MEDS: MAGNESIUM SULFATE / D5W 1 GM/100 ML BAG IV ONE ×2 (09:13→12:02)
--- NOTE | 2025-01-11 14:02 | Pharmacy Report ---
Pharmacy Glycemic Short Note 2 - Date of Service January 11, 2025 - Glycemic Short BSG Results (Last 24 hours): 01/10/25 01/10/25 01/11/25 16:55 20:32 05:23 Glucose 156 H POC Glucose 188 H 208 H 01/11/25 01/11/25 08:06 12:09 Glucose POC Glucose 183 H 188 H OUTPATIENT ANTIDIABETIC REGIMEN: * glipizide 10 mg bid, metformin 1 gm bid ASSESSMENT: 01/11/25: * BSGs ranging from from 156-208 since dinner yesterday * With minimal improvement from yesterday, will increase Lantus to 25 u with dinner today 01/10/25: * 79 year old admitted with UTI - Pharmacy consulted for glycemic management. Patient is type 2 diabetic managed on oral agents outpatient. A1c ~10%. BSGs >200s today. Fasting BSG elevated, will start Lantus 0.2 units/kg daily. PLAN FOR INPATIENT GLYCEMIC CONTROL: * Hold outpatient oral diabetes medications * Basal insulin * Lantus increased to 25 units w/dinner * Bolus insulin * NovoLog per scale ACHS or Q6hrs while NPO * Goal Range: Low 120 mg/dL - High 160 mg/dL * Correction Factor: 30 mg/dL/unit * Nutritional / Prandial insulin per carb ratio of 1 unit per 10 grams CHO consumed
--- NOTE | 2025-01-11 15:47 | XCELERA ---
[id number]
--- NOTE | 2025-01-11 16:02 | XRay Report ---
XR chest 1V portable CLINICAL HISTORY: f/u COMPARISON STUDY: Chest radiograph January 09, 2025. FINDINGS: Lung volumes are normal. Lungs are clear. There is no pneumothorax or pleural effusion. Car diomegaly is again noted. Mediastinal contours are normal. There is no evidence for pulmonary edema. IMPRESSION: No acute cardiopulmonary findings. No change in appearance of the chest. ACT 112: Negative or not required by law. Electronically signed by: Paulie Vizcaino M.D. 01/11/2025 4:01 PM
--- NOTE | 2025-01-11 16:15 | Communication Note ---
Date of Service: January 11, 2025 Sign out to [facility] for AM 01/12 to resume care given [facility] PCP. [facility] [place] [facility] [place] [facility] 7AM on 01/12.
[2025-01-11] MEDS: LANTUS PER UNIT CHARGE SQ SCH (17:54)
[2025-01-12 06:33] LABS: Hematocrit (blood only) 37.1 % (37.0-47.0); Hemoglobin 12.7 g/dl (12.0-16.0); Mean Corpuscular Hemoglobin 28.2 pg (25.0-34.0); Mean Corpuscular Hgb Conc 34.2 g/dL (32.0-36.0); Mean Corpuscular Volume 82.4 fL (80.0-100.0); Mean Platelet Volume 11.4 fL (9.4-12.4); Platelet Count 89 K/uL (130-400); RDW Coefficient of Variation 13.7 % (11.5-14.5); RDW Standard Deviation 40.7 fL (36.4-46.3); White Blood Count 2.83 K/ul (4.8-10.8)
[2025-01-12 06:43] LABS: BUN Creatinine Ratio 17.6 (10-20); Calcium 8.5 mg/dl (8.6-10.3); Creatinine Clr Calc Pharmacy 56.6 ml/min; Potassium 3.7 mmol/L (3.5-5.1)
--- NOTE | 2025-01-12 08:27 | Cardiology Consultation ---
Date of Consultation January 12, 2025 Assessment & Plan (1) Sepsis: (2) UTI (urinary tract infection): (3) Metabolic encephalopathy: (4) SVT (supraventricular tachycardia): Plan Assessment: 79 year old female that presents with acute change in mental status and urinary symptoms. Cardiology was requested for concerns of SVT and VT. Plan: 1. Sepsis 2. UTI 3. metabolic encephalopathy 4. SVT -Patient admitted with acute mental status change, + UTI, Blood cultures pending . Continued management of acute infection per primary team. -Review of telemetry shows brief episode of SVT noted at 2309. No Ventricular Tachycardia noted. -Echocardiogram shows moderate LVH. moderate mitral annular calcification and mild MS. LVEF 60-65%. -Blood pressure controlled. -Continue Lisinopril -No further cardiac testing is warranted at this time. Case has been discussed with Dr. No. Further recommendations regarding plan of care as per his assessment. I spent a total of 40 minutes on the date of service in preparation, delivery, documentation of the care provided to the patient excluding any time spent in the performance of separately billed services. MAGGI Felix [facility] Cardiology [facility] Supervising Physician Co-Signing Physician Notes I have personally performed a history and physical examination on the patient. I have reviewed the advance practitioner's documentation, and I agree with, and take responsibility for the plan of care. 79-year-old female admitted secondary to urinary tract infection, sepsis, and metabolic encephalopathy. Cardiology consultation requested due to evidence of dysrhythmia on telemetry. Telemetry demonstrates 10 beat yulia of paroxysmal atrial tachycardia with mild aberrant conduction. There is no ventricular tachycardia. 2D echocardiogram revealing moderate concentric left ventricular hypertrophy and hyperdynamic LV function with a mildly elevated LVOT gradient. Patient is poor historian, however asymptomatic from a cardiovascular perspective. Consider addition of low-dose beta-armin, metoprolol tartrate 12.5 mg twice daily, if patient experiences recurrent, symptomatic episodes of supraventricular tachycardia. Maintain serum potassium greater than 4.0, and serum magnesium greater than 2.0. Continue lisinopril as ordered. No further inpatient cardiac testing recommended at this time. Cardiology will sign off. Please call with additional concerns/questions. Chai No DO, [facility] History of Present Illness Reason for Consultation: SVT; 8 beat run of VT Requesting Physician: [facility] hospitalist Attending Physician: Adri Olivas MD History of Present Illness HPI: Patient is a 79 year old female with history of HTN and DM that presented to the ER with an acute mental status change/confusion. Endorsed dysuria and increased urinary frequency. Upon seeing patient today she remains with some mild confusion. She is currently picking apart a packing of Telemetry stickers saying she is struggling to open up the wipes. Aware that she is at the hospital, but reason as to why remains quite scattered. Denies chest pain, pressure, palpitations, no shortness of breath, PND, pre-syncope, syncope or edema. EKG on admission shows ST rates 110bpm Head CT No acute intracranial process, ? sinusitis Chest xray Negative HST: 66.9/59.2 +Urine culture E.coli Blood cultures pending Review of telemetry shows SR with PAC's. there was notation of a run of SVT at 2309. Cardiology had been told that patient was experiencing an episode of VT 8 beats overnight; however, there is no evidence of this on telemetry. Allergies Allergy/AdvReac Type Severity Reaction Status Date / Time No Known Drug Allergies Allergy Verified 04/07/23 09:16 Home Medications Medication Instructions Recorded Confirmed Type blood-glucose meter (OneTouch #1 ea 01/28/22 04/07/23 Rx Ultra2 Meter) lancets 33 gauge (OneTouch Delica #100 ea 01/28/22 04/07/23 Rx Plus Lancet) blood sugar diagnostic (OneTouch #100 ea 07/19/23 Rx Ultra Test strips) glipizide 10 mg tablet, extended 10 mg PO BID #60 tabs 07/26/24 01/09/25 Rx release 24 hr metformin 1,000 mg tablet 1,000 mg PO BID #180 tabs 07/27/24 01/09/25 Rx gabapentin 300 mg capsule 300 mg PO UD 01/09/25 01/09/25 History lisinopril 20 1 tab PO UD 01/09/25 01/09/25 History mg-hydrochlorothiazide 12.5 mg tablet ropinirole 0.25 mg tablet 0.5 mg PO HS 01/09/25 01/09/25 History Patient History Medical History (Updated 01/11/25 @ 14:28 by Aminata Hamilton PA-C) HLD (hyperlipidemia) Diabetes mellitus Screening for thyroid disorder Cholelithiases Elevated LDL cholesterol level Polyp of colon Restless legs syndrome (RLS) Surgical History History of tonsillectomy and adenoidectomy [place] teeth extracted H/O tubal ligation Family History Mother Diabetes Father Myocardial infarction, Onset Age: 80 Sister Diabetes Depression Brother Diabetes, Onset Age: 43 65 Grandfather (Maternal) Diabetes Grandmother (Maternal) Diabetes Social History Smoking Status: Former smoker Second Hand Exposure: No; Do You Dip or Chew Tobacco: No; Tobacco Cessation Education Requested by Patient: No Hx Alcohol Use: No Hx Substance Use: No Preferred Language: Italian Communication Ability: Effective Hearing Ability: Normal 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 Beliefs That Will Affect Care: None marital status: Current Living Situation: Spouse current occupational status: employed current occupation: [employer] agent Other Information That Helps Us Care for You: No Feels Safe at Home: Yes Safety Concerns: Feels Safe At This Time caffeine: No during the past year weight has: remained stable Physical Activity Frequency: Does not Exercise Seatbelt Use: sometimes Sunscreen Use: No Assistive Devices: Cane and Walker Review of Systems Review of Systems: All systems reviewed & are unremarkable except as noted in HPI & below Physical Exam Constitutional: well developed, + ill appearing and + obese; no acute distress Neck: normal visual inspection and trachea midline Respiratory: normal respiratory effort, lungs clear to auscultation no respiratory distress, no labored breathing and no cough Cardiovascular: Rate/Rhythm: regular rate and regular rhythm Heart Sounds: normal S1 and normal S2; no murmur Vessels: dorsalis pedis pulses present; no JVD Extremities: no edema Skin: no rashes, warm and dry Psychiatric: Orientation: alert, oriented to person, oriented to place and cooperative; + not oriented to time Results & Data Vital Signs (Past 12 Hours) Vital Signs Temp Pulse Pulse Resp BP Pulse Ox O2 Del Method 01/12/25 08:04 36.8 C 83 16 109/68 96 Room Air 01/12/25 07:00 91 H 01/12/25 01:06 37 C 88 16 117/77 93 Room Air 01/12/25 00:16 96 H 01/12/25 00:14 37.2 C 01/11/25 22:49 37.4 C 93 H 16 109/66 93 Room Air Laboratory Results CBC 01/12/25 Range/Units 05:37 WBC 2.83 L (4.8-10.8) K/ul RBC 4.50 (4.20-5.40) M/uL Hgb 12.7 (12.0-16.0) g/dl Hct 37.1 (37.0-47.0) % Plt Count 89 L (130-400) K/uL Comprehensive Metabolic Panel 01/12/25 Range/Units 05:37 Sodium 136 (136-145) mmol/L Potassium 3.7 (3.5-5.1) mmol/L Chloride 107 (98-107) mmol/L Carbon Dioxide 23 (21-32) mmol/L BUN 15 (6-23) mg/dl Creatinine 0.85 (0.6-1.2) mg/dl Glucose 116 H (70-99(Fasting)) mg/dl Calcium 8.5 L (8.6-10.3) mg/dl Intake and Output 01/11/25 01/12/25 01/12/25 22:59 06:59 14:59 Intake Total 450 / 1660 240 / 240 Output Total 0 / 0 Balance 450 / 1659 -1 / 1659 240 / 240 Intake: IV 150 / 1250 Magnesium Sulfate / D5w 1 gm In 100 / 100 100 ml @ 50 mls/hr IV ONE ONE Rx#:[id number] cefTRIAXone SODIUM 2,000 mg In 50 / 50 50 ml @ 100 mls/hr IV Q24H [facility] Rx#:[id number] Oral 300 / 410 240 / 240 Output: # Bowel Movements / 0 / 0 Other: # Unmeasured Voids 2 1 0 Weight 78.9 kg Weight Measurement Method Built in [facility] Diagnostic Findings Echocardiogram 01/11/2025 LV systolic function is normal 60-65% Moderate asymmetric LVH Moderate mitral annular calcification Mild MS
--- NOTE | 2025-01-12 11:40 | Hospitalist Progress Note ---
Date of Service January 12, 2025 Assessment & Plan Admission and Anticipated Discharge Date Admission Date: January 09, 2025 Results & Data Results & Data Vital Signs (Past 12 Hours) Vital Signs Temp Pulse Pulse Resp BP BP Pulse Ox 01/12/25 10:58 37.0 C 84 16 115/65 95 01/12/25 08:45 01/12/25 08:04 36.8 C 83 16 109/68 96 01/12/25 07:00 91 H 01/12/25 01:06 37 C 88 16 117/77 93 01/12/25 00:16 96 H 01/12/25 00:14 37.2 C O2 Del Method 01/12/25 10:58 Room Air 01/12/25 08:45 Room Air 01/12/25 08:04 Room Air 01/12/25 07:00 01/12/25 01:06 Room Air 01/12/25 00:16 01/12/25 00:14
--- NOTE | 2025-01-12 14:26 | Pharmacy Report ---
Pharmacy Glycemic Short Note 2 - Date of Service January 12, 2025 - Glycemic Short BSG Results (Last 24 hours): 01/11/25 01/11/25 01/12/25 17:06 20:37 05:37 Glucose 116 H POC Glucose 166 H 181 H 01/12/25 01/12/25 08:19 12:25 Glucose POC Glucose 139 H 215 H OUTPATIENT ANTIDIABETIC REGIMEN: * glipizide 10 mg bid, metformin 1 gm bid ASSESSMENT: 01/12: * Patient received total of 42 units of insulin yesterday, of which 25 units were basal insulin * Fasting BSG 116 mg/dL - had decreased basal dose from day prior, will continue with Lantus 20-25 units HS 01/11/25: * BSGs ranging from from 156-208 since dinner yesterday * With minimal improvement from yesterday, will increase Lantus to 25 u with dinner today 01/10/25: * 79 year old admitted with UTI - Pharmacy consulted for glycemic management. Patient is type 2 diabetic managed on oral agents outpatient. A1c ~10%. BSGs >200s today. Fasting BSG elevated, will start Lantus 0.2 units/kg daily. PLAN FOR INPATIENT GLYCEMIC CONTROL: * Hold outpatient oral diabetes medications * Basal insulin * Lantus 20-25 units HS * Bolus insulin * NovoLog per scale ACHS or Q6hrs while NPO * Goal Range: Low 120 mg/dL - High 160 mg/dL * Correction Factor: 30 mg/dL/unit * Nutritional / Prandial insulin per carb ratio of 1 unit per 10 grams CHO consumed
--- NOTE | 2025-01-12 14:49 | Discharge Summary ---
Date of Service January 12, 2025 Admission HPI Per Admitting Provider 79yo female with PMHx significant for DM/HTN presented with acute mental status change/confusion. CT head negative for acute CVA. UA appears grossly infected, likely source Patient evaluated in C9, no family in room. Alert to person, believes in [facility], year 1943 and month November but is pleasant/cooperative. Patient does endorse having burning/increased urinary frequency however. No overt abdominal pain, nausea/vomiting, no CP/SOB reported. EKG noting sinus tachycardia but rates stable 90-100s at present. Reports lives with her son, who apparently was with her earlier. A friend took to eye exam, notable right eye is DILATED from that appointment. Discussed admission for tx UTI/further evaluation, check A1c in AM. On lisinopril/HCTZ but notes doesn't regularly check her BP at home. Therapy evals to be undertaken. FULL CODE. Admission Exam Per Admitting Provider General: 79yo female sitting up in bed, getting XRAY, NAD HEENT: head atraumatic, normocephalic, mm slightly dry, trachea midline Resp: even/unlabored, slightly diminished in the bases but no wheezing/rales, on ROOM AIR CV: RRR, slightly tachy (improving since IVF), no significant m/r/g, no pitting edema GI: +BS, soft/slight distension, nontender no winkler MSK/Neuro: moves all extremities, no slurred speech/facial droop, able to follow commands as asked but mentation not at baseline Notable RIGHT EYE DILATED (recent eye visit, was dilated at that exam) Psych: alert to person, not year/time/month, cooperative with exam Principal Diagnosis UTI Discharge Exam Neuro: AAOx4, PERRLA, no aphagia, memory changes, CNII-XII grossly intact HEENT: head normocephalic, moist mucus membranes CV: S1/S2, (-) M/G/R, (-) edema, cap refill < 3 seconds Resp: Lungs CTA in all cantrell. On RA GI: Abdomen S/NT/ND, Ax4 bowel sounds, (-) CVA tenderness Musculoskeletal: 5/5 B/L UE strength, 5/5 B/L LE strength. No gait disturbance Skin: (-) rashes , (-) erythema. Psych: euthymic mood Discharge Data Allergies Allergy/AdvReac Type Severity Reaction Status Date / Time No Known Drug Allergies Allergy Verified 04/07/23 09:16 Consultations 01/09/25 17:39 ED Decision to Admit Stat 01/12/25 07:43 Consult Cardiology Routine Ordered Studies 1. CXR: 01/09: IMPRESSION: Mild pulmonary vascular congestion. 2. Head CT: IMPRESSION: 1. No acute intracranial process. 2. Small amount of fluid in the right maxillary sinus. Correlate for sinusitis. 3. ECHO: Diabetes Follow up Diabetes Follow-up Needed for HgbA1c >9% Hospital Course (1) UTI (urinary tract infection): (2) Sepsis: Plan Ms. Pulido is a 79-year-old female admitted secondary to urinary tract infection, sepsis, and metabolic encephalopathy. She initially had a lactic acid of 3.0 on admission, leukopenia and procal 0.06. Temp 38.3C with concerns for sepsis 2nd to urinary source. CT head negative for acute CVA. She was provided with 2L NSS bolus in ER, lactic 3.0--> 2.1 on repeat. Na 131--> 134 (normal w/ Glu). Blood cultures were obtained. Her Urine culture results showed E. Coli in the urine. It was also identified that she had hyperglycemia with an uncontrolled A1C. Cardiology consultation was placed after there was an episode of SVT. Patient is poor historian, however asymptomatic from a cardiovascular perspective. Consider addition of low-dose beta-armin, metoprolol tartrate 12.5 mg twice daily, if patient experiences recurrent, symptomatic episodes of supraventricular tachycardia. This admission, an Echocardiogram shows moderate LVH. moderate mitral annular calcification and mild MS. LVEF 60-65%. Cardiology recommended to consider a low-dose beta-armin, metoprolol tartrate 12.5 mg twice daily, if patient experiences recurrent, symptomatic episodes of supraventricular tachycardia. Please discuss with your PCP or if symptoms return. She was discharged on Cefdinir for treatment of her E.Coli. Cardiology recommended to consider a low-dose beta-armin, metoprolol tartrate 12.5 mg twice daily, if patient experiences recurrent, symptomatic episodes of supraventricular tachycardia. Please discuss with your PCP or if symptoms return. Total Time Total Time Spent Total Time Spent (In Minutes): I spent a total of 56 minutes coordinating, documenting, and providing care for this patient excluding time spent inthe performance of separately billed services or time spent by another provider/QHP. Discharge Plan Discharge Items Patient Disposition: Home - Self-Care Reason For Visit: AMS, UTI, +TROP Discharge Diagnosis: UTI Condition on Discharge: Good Activity: Resume your previous activity Non-emergency contact: Primary Care Provider Call non-emergency contact if: you have any medication questions, your pain is worsening and your temperature is above 101.5 Follow-up/Referrals: Thomas Arredondo, [Outside Practitioners] - Diet: Carb Consistent or DM2 and Heart Healthy Addtl Attending Provider Instructions: Ari Vieira presented to the [facility] on January 09 with symptoms indicating you were confused. In the ER, you were deemed to be septic (blood infection) as caused by a urinary tract infection that was identified with a urinalysis. You received IV fluids in the emergency room and were started on IV antibiotics. Blood cultures and a urine culture were obtained to better support your treatment. Your urine culture results indicated you had an E.Coli (type of bacteria) in your urine. It was also identified that your blood sugar and diabetes numbers were not controlled. Your blood sugars improved while you were here but it is important to follow closely with a in service educator on your discharge. While you were here you developed a fast heart rate and received some electrolyte replacement for treatment. You did not have any chest pain or symptoms of concern at that time; we did obtain an Echocardiogram (an ultrasound of your heart) which was normal. We discussed with the heart doctor in Cardiology who cleared you for discharge and did not anticipate further testing was necessary. Cardiology recommended to consider a low-dose beta-armin, metoprolol tartrate 12.5 mg twice daily, if patient experiences recurrent, symptomatic episodes of supraventricular tachycardia. Please discuss with your PCP or if symptoms return. MEDICATION CHANGES: You will be discharged on oral antibiotics to complete treatment for your urinary tract infection. 1. Cefdinir 300 mg by mouth twice daily for another FIVE days; starting tonight and completing your last dose on WednesdayJanuary 16 2. Take a Priobiotic for one week after completion of your antibiotics to protect your gut seb. Take one tablet daily completing on WednesdayDecember 26. SUMMARY OF TEST RESULTS: 1. CXR: 01/09: IMPRESSION: Mild pulmonary vascular congestion. 2. Head CT: IMPRESSION: 1. No acute intracranial process. 2. Small amount of fluid in the right maxillary sinus. Correlate for sinusitis. RECOMMENDATIONS FOR FOLLOW-UP: 1. Please attend a follow up appointment with Dr. Arredondo with [facility]. We notified the liason with [facility] who will call you for a follow up. It is important to attend your follow up appointment and determine next steps with your diabetes management and to follow up from your inpatient stay. Cardiology recommended to consider a low-dose beta-armin, metoprolol tartrate 12.5 mg twice daily, if patient experiences recurrent, symptomatic episodes of supraventricular tachycardia. Please discuss with your PCP or if symptoms return. OTHER INSTRUCTIONS: Seek medical attention if you have: * temperature above 101 * chest pain or trouble breathing * abdominal pain, nausea, vomiting * diarrhea, dark stools or bloody stools * any unanswered questions or concerns Call 911 if symptoms are severe. Please take good care of yourself. It has been a pleasure taking care of you. Please take care of yourself. If you have any questions regarding your recent hospitalization please contact [facility] and [facility] @ [phone]. Pending Studies at Discharge: No Stand-Alone Forms: My [facility], Smoking Cessation Medications and DC Order Prescriptions: New lisinopril 20 mg Tablet 20 mg PO QAM Qty: 20 0RF gabapentin 100 mg Capsule 100 mg PO TID Qty: 20 0RF cefdinir 300 mg capsule 300 mg PO BID 5 Days Qty: 10 0RF Continued (DME) OneTouch Ultra Test Strip See Rx Instructions .ROUTE .MEDSUPPLY Qty: 100 5RF Rx Instructions: As directed Dx E11.9 Test BID glipizide 10 mg tablet extended release 24hr 10 mg PO BID Qty: 60 0RF Rx Instructions: with meals metformin 1,000 mg tablet 1,000 mg PO BID Qty: 180 1RF (DME) blood-glucose meter [OneTouch Ultra2 Meter] Misc See Rx Instructions .Route Qty: 1 0RF Rx Instructions: As directed Dx E11.9 Check FSBS BID (DME) lancets [OneTouch Delica Plus Lancet] 33 gauge misc See Rx Instructions .Route Qty: 100 5RF Rx Instructions: As directed Dx E11.9 Test BID ropinirole 0.25 mg tablet 0.5 mg PO HS Rx Instructions: 2 po at hs for restless legs; Discontinued lisinopril-hydrochlorothiazide 20-12.5 mg tablet 1 tab PO UD Rx Instructions: 12.5 mg po daily. no fill history available gabapentin 300 mg capsule 300 mg PO UD Rx Instructions: 300 mg po bid. filled 12/04 90 day supply #270 Discharge Orders: Discharge Order (Routine); Ordered 01/12/25 Ordered By: Fatemeh Long Admission Data Admit Date/Time: 01/09/25 18:13 Attending Provider: Adri Olivas Admit Provider: Francisco Jo Primary Care Provider: PCP,NO Other Providers: Kiara Nj; Chai No Other Interventions: Discharge Summary Assessment (RN) Last Done: 01/12/25 15:15 Supervising Physician Co-Signing Physician Notes Pt was seen and examined by myself, Adri Olivas MD on the day of service. Care was coordinated with MAGGI Waller. 79yoF with PMHx admitted with acute encephalopathy in the setting of an acute UTI Also episode of PATs overnight. Pt asymptomatic. On Exam, AAOx3, RRR Cardiology consulted, recommended initiating metoprolol tartrate 12.5mg BID if it recurs. Consider Zio patch for further monitoring after discharge. Continue with antibiotic course for 5 more days after discharge for UTI rx. Pt and family anxious for discharge home. Close PCP followup Otherwise as above. I spent a total [id number] coordinating, documenting, and providing care for this patient excluding time spent in the performance of separately billed services
[2025-01-12 15:01] VITALS: RESP 18; TEMP 99.3; O2SAT 93
[2025-01-12 15:17] VITALS: BP 115/65; PULSE 84
[2025-01-12] MEDS ORDERED: LANTUS PER UNIT CHARGE SQ SCH (21:00)
== END 2025-01-12 16:00 | disposition home or self-care (01) | DRG 871 ==
LOC: SUATTDRO → ED 16:13 → SUATTDRO 18:13 → 2N 18:13 → 2W 01-12 11:22
DX: E11.65 Type 2 diabetes mellitus with hyperglycemia; Z87.891 Personal history of nicotine dependence; G93.41 Metabolic encephalopathy; I47.10 Supraventricular tachycardia, unspecified; N39.0 Urinary tract infection, site not specified; Z79.84 Long term (current) use of oral hypoglycemic drugs; E78.5 Hyperlipidemia, unspecified; I47.20 Ventricular tachycardia, unspecified; A41.9 Sepsis, unspecified organism